=== PATIENT | female | born 1955 | race Caucasian/White ===

== ENCOUNTER 2025-01-22 13:21 | Inpatient (IN) | payer MEDICARE, SELFPAY ==
[2025-01-22] VITALS (16 sets, daily range): BP systolic 104–146; BP diastolic 55–96; PULSE 79–119; RESP 16–26; TEMP 36.6; O2SAT 97–100; BMI 29.0
--- NOTE | ~2025-01-22 | XR_ITS ---
XR chest 2V 01/22/2025 13:38 Indication: Syncope Procedure: 2 view chest Comparison: No prior studies for comparison. Findings: Elevated left diaphragm. Cardiomegaly. There is atherosclerosis of the aorta. Retrocardiac infiltrates are present which may represent atelectasis or pneumonia. No pneumothorax. No acute osseo us abnormality. Impression: 1: Retrocardiac infiltrates, atelectasis versus pneumonia. Reviewed, dictated and finalized at location A. Impression: 1: Retrocardiac infiltrates, atelectasis versus pneumonia.
--- NOTE | ~2025-01-22 | CT_ITS ---
CT brain wo con Ordering provider: FARHANA Chino History: 69 years Female with . Syncope . Comparison: None. Technique: CT of the head without contrast. Radiation reduction technique utilized.The dose-length pr oduct was 605.33 mGy-cm. FINDINGS: BRAIN PARENCHYMA AND CSF SPACES: Mild leukoaraiosis and diffuse cortical atrophy. Mild atheromatous d isease. No midline shift, mass effect or hemorrhage. The brain parenchyma and CSF spaces are otherwi se normal. VISUALIZED PARANASAL SINUSES: Well aerated. MASTOIDS: Well aerated. BONES: The bones appear intact. SOFT TISSUES: Visualized nasopharynx is normal. Superficial soft tissues are normal. IMPRESSION: No acute intracranial findings. Reviewed, dictated and finalized at location A.
--- NOTE | ~2025-01-22 | US_ITS ---
Procedure: Duplex Doppler examination of the bilateral carotids. Indication: Syncope Technique: Real time, color-flow and pulse wave Doppler examination of the bilateral carotids was performed. Findings: Toure scale ultrasonography of the right neck demonstrated no significant plaque.. There was demonstra tion of normal color-flow and Doppler waveforms within the right common, internal and external caroti d arteries. The peak systolic velocities in the right common, internal and external carotid arteries were demonstrated to be 56 cm/sec, 70 cm/sec and 100 cm/sec respectively. The right ICA/CCA ratio was 1.3.The proximal right internal carotid artery demonstrates 0% stenosis relative to the normal dista l artery lumen diameter. Toure scale sonography of the left neck demonstrated small scattered plaques in the left common caroti d artery. There was demonstration of normal color-flow and wave forms within the left common, interna l and external carotid arteries. The peak systolic velocities in the left common, internal and business taxes specialist al carotid arteries were demonstrated to be 78cm/sec, 94 cm/sec and 74 cm/sec respectively. The left ICA/CCA ratio was 1.2. The proximal left internal carotid artery demonstrates 0% stenosis relative to the normal distal artery lumen diameter. There was antegrade flow demonstrated in the bilateral vertebral arteries. Impression: No hemodynamically significant stenosis of the bilateral internal carotid arteries. Antegrade flow in the bilateral vertebral arteries. Note: The methodology used is an indirect measurement validated against a direct method (such as the NASCET criteria) that compares diameters at the stenosis to the distal ICA. Reviewed, dictated and finalized at location . Impression: No hemodynamically significant stenosis of the bilateral internal carotid arter ies. Antegrade flow in the bilateral vertebral arteries. Note: The methodology used is an indirect measurement validated against a direct meth od (such as the NASCET criteria) that compares diameters at the stenosis to the distal ICA.
--- NOTE | 2025-01-22 13:26 | ECG_ITS ---
Test Date: 2025-01-22 13:29:38 Measurements Intervals [place] Rate: 83 P: 62 CA: 159 QRS: -18 QRSD: 84 T: 6 QT: 393 QTc: 462 Interpretive Statements SINUS RHYTHM WITH OCCASIONAL VENTRICULAR PREMATURE COMPLEXES POSSIBLE LEFT ATRIAL ENLARGEMENT [-0.1mV P WAVE IN V1/V2] LOW QRS VOLTAGE IN PRECORDIAL LEADS [QRS DEFLECTION < 1.0 mV IN CHEST LEADS] ANTEROSEPTAL MYOCARDIAL INFARCTION , OF INDETERMINATE AGE [40+ ms Q WAVE IN V1-V4] No previous ECG available for comparison Electronically Signed On 01-23-2025 15:58:52 CDT by Nicole Uriarte
[2025-01-22 14:48] LABS: Basophils Absolute Auto 0.1 K/mm3 (0.0-0.1); Basophils Percent Auto 0.5 % (0.2-1.2); Eosinophils Absolute Auto 0.1 K/mm3 (0-0.3); Eosinophils Percent Auto 0.5 % (0-4.4); Hematocrit 40.5 % (37.0-47.0); Hemoglobin 12.7 g/dL (12.0-15.0); Immature Granulocyte Absolute 0.04 K/mm3 (0.00-0.031); Immature Granulocyte Percent A 0.3 % (0-0.5); Lymphocytes Absolute Auto 0.78 K/mm3 (0.9-3.2); Mean Corpuscular HGB Conc 31.4 g/dl (32-36); Mean Corpuscular Hemoglobin 29.9 pg (26-34); Mean Corpuscular Volume 95.3 fl (80-100); Mean Platelet Volume 9.2 fl (7.4-10.4); Monocytes Absolute Auto 0.8 K/mm3 (0.1-0.6); Monocytes Percent Auto 6.1 % (2.6-8.5); Neutrophils Absolute Auto 11.3 K/mm3 (1.3-6.7); Neutrophils Percent Auto 86.6 % (45.5-73.1); Platelet Count Result 322 k/mm3 (150-375); Red Blood Count 4.25 M/mm3 (4.2-5.4); Red Cell Distribution Width 12.6 % (11.5-14.5)
[2025-01-22 15:00] LABS: Alanine Aminotransferase 23 U/L (6-35); Albumin Level 4.1 g/dL (3.5-5.1); Alkaline Phosphatase 159 U/L (38-126); Anion Gap 12 mmol/L (4-12); Aspartate Amino Transferase 29 U/L (14-36); Bilirubin,Total 1.1 mg/dL (0.2-1.3); Blood Urea Nitrogen 12 mg/dL (7-17); Carbon Dioxide 19 mmol/L (22-30); Chloride 107 mmol/L (98-107); Estimated CRCL calculation 41 ml/min; Estimated Glomerular Filt Rate 48; Glucose 122 mg/dL (65-110); Potassium 3.8 mmol/L (3.4-5.0); Sodium 138 mmol/L (137-145)
--- NOTE | 2025-01-22 15:27 | ED_ITS ---
HPI - Syncope General Chief Complaint: Syncope Stated Complaint: syncope Time Seen by Provider: 01/22/25 14:24 Source: patient, family and EMS Mode of arrival: EMS Limitations: altered mental status History of Present Illness HPI narrative: 69 years old white female came from group home because of syncope. 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 No seizure-like activities, patient denies any fever, chills, nausea, vomiting, chest pain, shortness of breath or headache or focal neuro deficit. History of dementia patient is oriented to her name only. Related Data Allergies Allergy/AdvReac Type Severity Reaction Status Date / Time Penicillins Allergy Severe Anaphylaxis Verified 01/22/25 13:25 Review of Systems 2 Review of Systems: All systems reviewed & are unremarkable except as noted in HPI and below Exam 2 Narrative: General appearance: Well-developed, well-nourished Skin: Normal color Head: Normocephalic, nontraumatic Eyes: Clear conjunctiva ENT: Oropharynx normal, ears normal, nose normal Neck: Supple, nontender Chest and respiratory: Airway patent, no respiratory distress, no accessory muscle use Heart: Regular rate/rhythm Abdomen: Soft, nontender, no organomegaly, quiet bowel sounds Vascular: Normal peripheral pulses, normal capillary refill. Musculoskeletal: Normal range of motion, nontender back Neurologic: Alert and oriented to her name only Course Vital Signs Vital signs: Vital Signs Pulse Rate 96 01/22/25 13:18 Respiratory Rate 16 01/22/25 13:18 Blood Pressure 115/96 H 01/22/25 13:18 Pulse Oximetry 100 01/22/25 13:18 Oxygen Delivery Room Air 01/22/25 13:18 Pulse Rate 106 H 01/22/25 14:32 Respiratory Rate 18 01/22/25 14:32 Blood Pressure 111/75 01/22/25 14:32 Pulse Oximetry 97 01/22/25 14:32 Oxygen Delivery Room Air 01/22/25 13:18 MDM - Syncope MDM Narrative Medical decision making narrative: Patient came to the ED with syncope after eating then standing and walking Vital signs are stable Physical examination is unremarkable except for dementia Differential diagnosis includes orthostatic hypotension, postprandial hypotension, electrolyte imbalance, dehydration, cardiac arrhythmia Blood workup today includes CBC, CMP, troponin showed WBC 13.0, creatinine 1.1, otherwise insignificant abnormalities Chest x-ray showed atelectasis versus pneumonia, patient does not have fever, does not cough, does not have shortness of breath, elevated white count could be reactive leukocytosis. Orthostatic blood pressure check positive for orthostasis which high likely the underlying cause of patient syncope + postprandial hypotension. Admit to hospitalist Diagnosis syncope, orthostatic hypertension Differential Diagnosis Differential diagnosis: Likely other (As above) Medical Records Attestation: I reviewed the patient's medical records. Lab Data Attestation: I reviewed the patient's lab results. 01/22/25 14:42 01/22/25 14:42 Labs: Lab Results 01/22/25 Range/Units 14:42 WBC 13.0 H (4.5-10.0) K/mm3 RBC 4.25 (4.2-5.4) M/mm3 Hgb 12.7 (12.0-15.0) g/dL Hct 40.5 (37.0-47.0) % MCV 95.3 (80-100) fl MCH 29.9 (26-34) pg MCHC 31.4 L (32-36) g/dl RDW 12.6 (11.5-14.5) % Plt Count 322 (150-375) k/mm3 MPV 9.2 (7.4-10.4) fl Immature Gran % (Auto) 0.3 (0-0.5) % Neut % (Auto) 86.6 H (45.5-73.1) % Lymph % (Auto) 6.0 L (18.3-44.2) % Sherman % (Auto) 6.1 (2.6-8.5) % Eos % (Auto) 0.5 (0-4.4) % Baso % (Auto) 0.5 (0.2-1.2) % Lymph # (Auto) 0.78 L (0.9-3.2) K/mm3 Sherman # (Auto) 0.8 H (0.1-0.6) K/mm3 Eos # (Auto) 0.1 (0-0.3) K/mm3 Baso # (Auto) 0.1 (0.0-0.1) K/mm3 Abs Immat Gran (auto) 0.04 H (0.00-0.031) K/mm3 Absolute Neuts (auto) 11.3 H (1.3-6.7) K/mm3 Absolute Nucleated RBC 0.000 (0.0-0.012) K/mm3 Nucleated RBC % 0.0 (0.0-0.2) % Sodium 138 (137-145) mmol/L Potassium 3.8 (3.4-5.0) mmol/L Chloride 107 (98-107) mmol/L Carbon Dioxide 19 L (22-30) mmol/L Anion Gap 12 (4-12) mmol/L BUN 12 (7-17) mg/dL Creatinine 1.12 H (0.7-1.0) mg/dL Estim Creat Clear Calc 41 ml/min Estimated GFR 48 L (59 - ) Glucose 122 H (65-110) mg/dL Calcium 9.0 (8.4-10.2) mg/dL Total Bilirubin 1.1 (0.2-1.3) mg/dL AST 29 (14-36) U/L ALT 23 (6-35) U/L Alkaline Phosphatase 159 H (38-126) U/L Total Protein 8.0 (6.3-8.2) g/dL Albumin 4.1 (3.5-5.1) g/dL Imaging Data Radiologist's impression: Impressions Chest X-Ray 01/22/25 13:41 Impression: 1: Retrocardiac infiltrates, atelectasis versus pneumonia. ECG Data EKG #1: Attestation: I personally reviewed and interpreted this ECG as follows: ECG completion date: 01/22/25 Interpretation: Normal sinus rhythm at 83 beats per minute, occasional PVCs, left atrial enlargement, low QRS complex in precordial leads, anterolateral myocardial infarction of indeterminate age, no previous EKG available for comparison, normal EKG Critical Care Time Critical Care Time Critical Care Time: No Discharge Plan Discharge Clinical Impression: Syncope Patient Disposition: Home Condition: Improved Instructions: Syncope (ED) Additional Instructions: Return if symptoms are worsening , call your family physician for appointment, take Tylenol as as needed for aches and pain, continue home medications. Patient Language: Occitan Follow-up/Referrals: UNKNOWN,DOCTOR [Primary Care Provider] -
[2025-01-22] MEDS: SODIUM CHLORIDE 0.9% IV 1,000 ML 999 ML IV CONT (16:39)
--- NOTE | 2025-01-22 16:47 | P.HP_ITS ---
H&P: HPI History of Present Illness Date/Time: 01/22/25 16:47 Chief Complaint: Syncope Narrative: This 69 year old female pt with PMH of Alzheimers Dementia who is Alert and oriented to self only at baseline, HTN, Failure to thrive, Generalized weakness, and frequent UTI's who resides at [facility] is brought to the ER after a brief syncopal episode. I am told by the ER provider that EMS relayed to him that the pt was at baseline walking back to her room after eating and suddenly complained of being too weak to continue walking. The staff reportedly put a chair underneath her and they reported she had a 1-2 minute LOC. At no time did patient falls or have any acute head trauma or injury. There was no reported seizure activity. Patient is not on a blood thinner According to med list from half-way. In the emergency room workup performed shows leukocytosis with WBCs of 13.0, EKG normal with sinus rhythm with occasional PVCs at 83 beats per minute without any ectopy or ischemia and chest x-ray showed retrocardiac infiltrates concerning for atelectasis versus pneumonia. Urinalysis is ordered however to this point they have been unable to obtain a clean sample so nurse is going to straight catheterize. Patient received a 1 L bolus of IV fluids in the emergency room and is placed on maintenance rate of 125 mL/hour. Patient's Granddaughter and brother are both at the bedside, were not present when this incident occurred and cannot provide any meaningful information regarding the events of today but they do verify that patient does appear to be at her current baseline status and confirmed that she is do not resuscitate which is on patient's chart. Review of Systems Review of Systems: Any information received was from report from ER physician or obtained from EMS records and half-way records as patient has Alzheimer's dementia and is alert and oriented to self only. ROS unobtainable: Yes unobtainable due to mental status PMFSH Past Medical History Medical History (Updated 01/22/25 @ 17:00 by FARHANA Chino) Leukocytosis Frequent UTI Generalized weakness Failure to thrive Hypertension Alzheimer's dementia Comments History is difficult to obtain given pt's degree of dementia. Medical history is obtained from her [facility] record. Meds Home Medications and Allergies Allergies Allergy/AdvReac Type Severity Reaction Status Date / Time Penicillins Allergy Severe Anaphylaxis Verified 01/22/25 17:00 Vital Signs Vital Signs - 24 hr 01/22/25 13:18 01/22/25 14:28 01/22/25 14:29 Pulse Rate 96 84 99 Respiratory Rate 16 Blood Pressure 115/96 H 116/69 111/75 Pulse Oximetry 100 Oxygen Delivery Room Air 01/22/25 14:31 01/22/25 14:32 01/22/25 15:31 Pulse Rate 108 H 106 H 80 Respiratory Rate 18 22 H Blood Pressure 104/55 L 111/75 Pulse Oximetry 97 99 Oxygen Delivery 01/22/25 15:46 01/22/25 16:03 01/22/25 16:15 Pulse Rate 91 82 79 Respiratory Rate 26 H 24 H 21 H Blood Pressure Pulse Oximetry 100 Oxygen Delivery 01/22/25 16:30 01/22/25 16:35 Pulse Rate 85 85 Respiratory Rate 22 H Blood Pressure Pulse Oximetry 98 Oxygen Delivery Exam Const: General: comfortable and no acute distress Other: pleasantly confused, elderly female patient lying supine on stretcher at this time in no acute distress. HENMT: Mouth: Yes dry mucous membranes Eyes: General: appearance normal, both eyes and all related structures Sclera: sclerae normal Pupils: Equal, round and reactive pupils present EOM: EOMs intact bilaterally Neck: Neck: supple and no JVD Resp: Effort & Inspection: normal respiratory effort Auscultation: clear to auscultation bilaterally Cardio: Rate: regular rate Rhythm: regular rhythm Heart sounds: no gallops, no murmurs and no rubs Other: Occasional PVC audible with auscultation of the precordium. No displacement of PMI. GI: Inspection: non-distended GI Palp: Yes Soft to palpation and No Tenderness to palpation present (GI) Auscultation: normal bowel sounds Skin: General skin exam: normal color, no rashes or lesions noted and no erythema Lesions: no lesions noted Rashes: no rashes noted Wounds: no wounds Neuro: Other: Alert and oriented to self only. No acute focal deficits. Extrem: General: normal to inspection, no edema and no pedal edema Other: grossly intact with full active range of motion of all extremities. Psych: Affect: normal affect Other: Confused H&P: Results Labs Labs: Short CBC 01/22/25 Range/Units 14:42 WBC 13.0 H (4.5-10.0) K/mm3 Hgb 12.7 (12.0-15.0) g/dL Hct 40.5 (37.0-47.0) % Plt Count 322 (150-375) k/mm3 BMP 01/22/25 14:42 Sodium 138 Potassium 3.8 Chloride 107 Carbon Dioxide 19 L BUN 12 Creatinine 1.12 H Glucose 122 H Calcium 9.0 Liver Function 01/22/25 Range/Units 14:42 Total Bilirubin 1.1 (0.2-1.3) mg/dL AST 29 (14-36) U/L ALT 23 (6-35) U/L Alkaline Phosphatase 159 H (38-126) U/L Albumin 4.1 (3.5-5.1) g/dL Assessment and Plan Assessment and plan (1) Syncope: Code(s): R55 - Syncope and collapse Status: Acute Assessment and Plan: * Exact etiology unknown. Additional testing currently in process * Ordering CT Head STAT, despite no acute injury, to be prudent will obtain imaging. * Ordering ECHO * Obtain Carotid duplex * Q Shift Orthostatic vital signs * Trend labs and imaging * Neuro checks Q4 hrs (2) Leukocytosis: Code(s): D72.829 - Elevated white blood cell count, unspecified Status: Acute Assessment and Plan: * Etiology unknown at this time. Still obtaining workup. * CXR with overall concerns for Atelectasis vs. PNA with retrocardiac infiltrates. * Pt with hx of frequent UTI's. * Will start Levaquin 750 mg IVPB Q24 hrs to cover for both PNA and UTI potential. Rocephin not used as pt has anaphylaxis to PCN. * ER nurse to straight cath for urine sample as we have been unable to obtain a clean sample thus far. * Blood cultures x2 ordered. * Trend and monitor labs and VS. (3) Alzheimer's dementia: Code(s): G30.9 - Alzheimer's disease, unspecified; F02.80 - Dementia in other diseases classified elsewhere, unspecified severity, without behavioral disturbance, psychotic disturbance, mood disturbance, and anxiety Status: Chronic Assessment and Plan: * Chronic for pt. * Safety precautions initiated with fall precautions. * Restart home meds when they are confirmed. (4) Hypertension: Code(s): I10 - Essential (primary) hypertension Status: Chronic Assessment and Plan: * Currently stable. * Restart home meds after confirmed. (5) Failure to thrive: Status: Chronic Assessment and Plan: * Pt receiving IVF of NS at 100 ml/hr. * Accurate calorie count * Accurate intake and output. (6) Generalized weakness: Code(s): R53.1 - Weakness Status: Chronic Assessment and Plan: * PT and OT evaluation and treat for discharge planning. * No focal deficits. (7) Frequent UTI: Code(s): N39.0 - Urinary tract infection, site not specified Status: Chronic Assessment and Plan: * No currently known treatment of UTI. * Due to history of and the current Leukocytosis, Levaquin 750 mg Q24 hrs is initiated. 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 Quality VTE Prophylaxis VTE prophylaxis: mechanical ordered Hospitalist MIPS Advance Care Plan I have confirmed that the patient's Advanced Care Plan is present, code status is documented, or surrogate decision maker is listed in patient medical record.: Yes Medication Reconciliation I have utilized all available resources to obtain, update and review the patients current medications (includes all prescriptions, OTC, herbals, cannabis, and nutritional supplements).: Yes
[2025-01-22 17:04] LABS: Add Urine Microscopic? NO; Appearance Urine Clear (Clear); Bilirubin Urine Negative (Negative); Blood Urine Negative (Negative); Color Urine Yellow (Yellow); Glucose Urine UA Negative (Negative); Ketones Urine 1+ mg/dL (Negative); Leukocyte Esterase Ur Negative LEU/UL (Negative); Nitrate Urine Negative (Negative); Protein Urine Negative (Negative); Specific Grav Ur 1.013 (1.001-1.035); pH Urine 7.5 (5.0-9.0)
--- NOTE | 2025-01-22 17:29 | ADMGEN ---
This patient, Krissy Kapoor, was admitted to Medical Room 254-01. Patient/family oriented to hospital policies and general routines including ID bracelet, bed and alarms, visiting hours, pain management, procedures, bathroom and other care routines, personal items, smoking policy, room service/diet, and visiting hours. Information on how to activate the Rapid Response Team has been discussed. Patient/Family are encouraged to report perceived risks to care and to ask questions if they do not understand what they are told or what they should do.
[2025-01-22] MEDS: levoFLOXacin 750 MG/D5W 150 ML 750 MG/150 ML BAG 100 MG IVPB (17:51)
[2025-01-22] MEDS: SODIUM CHLORIDE 0.9% IV 1,000 ML 125 ML IV CONT (17:52)
[2025-01-22] MEDS: QUEtiapine FUMARATE 25 MG TABLET 50 MG PO (21:30)
[2025-01-22] MEDS: traZODone HCL 50 MG TABLET PO (21:30)
[2025-01-23] VITALS (12 sets, daily range): BP systolic 118–164; BP diastolic 65–99; PULSE 82–103; RESP 16–18; TEMP 36.1–36.6; O2SAT 97–100
[2025-01-23 06:46] LABS: Basophils Absolute Auto 0.1 K/mm3 (0.0-0.1); Basophils Percent Auto 0.7 % (0.2-1.2); Eosinophils Absolute Auto 0.1 K/mm3 (0-0.3); Eosinophils Percent Auto 1.2 % (0-4.4); Hematocrit 39.4 % (37.0-47.0); Hemoglobin 12.5 g/dL (12.0-15.0); Immature Granulocyte Absolute 0.02 K/mm3 (0.00-0.031); Immature Granulocyte Percent A 0.2 % (0-0.5); Lymphocytes Absolute Auto 1.22 K/mm3 (0.9-3.2); Lymphocytes Percent Auto 14.7 % (18.3-44.2); Mean Corpuscular HGB Conc 31.7 g/dl (32-36); Mean Corpuscular Hemoglobin 29.8 pg (26-34); Mean Platelet Volume 9.1 fl (7.4-10.4); Monocytes Absolute Auto 0.7 K/mm3 (0.1-0.6); Monocytes Percent Auto 8.4 % (2.6-8.5); Neutrophils Absolute Auto 6.2 K/mm3 (1.3-6.7); Neutrophils Percent Auto 74.8 % (45.5-73.1); Platelet Count Result 323 k/mm3 (150-375); Red Blood Count 4.19 M/mm3 (4.2-5.4); Red Cell Distribution Width 12.7 % (11.5-14.5); White Blood Count 8.3 K/mm3 (4.5-10.0)
[2025-01-23 06:54] LABS: Alanine Aminotransferase 18 U/L (6-35); Albumin Level 3.8 g/dL (3.5-5.1); Alkaline Phosphatase 145 U/L (38-126); Anion Gap 10 mmol/L (4-12); Aspartate Amino Transferase 25 U/L (14-36); Bilirubin,Total 0.8 mg/dL (0.2-1.3); Blood Urea Nitrogen 11 mg/dL (7-17); Calcium 8.9 mg/dL (8.4-10.2); Carbon Dioxide 18 mmol/L (22-30); Chloride 110 mmol/L (98-107); Estimated CRCL calculation 48 ml/min; Estimated Glomerular Filt Rate 58; Glucose 91 mg/dL (65-110); Magnesium 2.2 mg/dL (1.6-2.3); Sodium 138 mmol/L (137-145)
[2025-01-23] MEDS: traZODone HCL 50 MG TABLET PO ×3 (08:47→17:08)
[2025-01-23] MEDS: lisinopriL 10 MG TABLET PO (08:47)
[2025-01-23] MEDS: THIAMINE HCL 100 MG TABLET PO (08:47)
[2025-01-23] MEDS: QUEtiapine FUMARATE 25 MG TABLET 50 MG PO ×2 (08:47→20:45)
[2025-01-23] MEDS: ESCITALOPRAM OXALATE 5 MG TABLET PO (08:48)
[2025-01-23] MEDS: ACETAMINOPHEN 325 MG TABLET 650 MG PO (08:48)
--- NOTE | 2025-01-23 09:46 | P.PNIM_ITS ---
Progress Note: A&P Assessment and Plan (1) Syncope: Code(s): R55 - Syncope and collapse Status: Acute Assessment and Plan: * Exact etiology unknown. * CT head no acute changes * Ordering ECHO, Carotid duplex * Q Shift Orthostatic vital signs * Trend labs and imaging * Neuro checks Q4 hrs (2) Alzheimer's dementia: Code(s): G30.9 - Alzheimer's disease, unspecified; F02.80 - Dementia in other diseases classified elsewhere, unspecified severity, without behavioral disturbance, psychotic disturbance, mood disturbance, and anxiety Status: Chronic Assessment and Plan: * Chronic for pt. * Safety precautions initiated with fall precautions. * Restart home meds when they are confirmed. (3) Hypertension: Code(s): I10 - Essential (primary) hypertension Status: Chronic Assessment and Plan: * Currently stable. * Restart home meds after confirmed. (4) Failure to thrive: Status: Chronic Assessment and Plan: * Pt receiving IVF of NS at 100 ml/hr. * Accurate calorie count * Accurate intake and output. (5) Generalized weakness: Code(s): R53.1 - Weakness Status: Chronic Assessment and Plan: * PT and OT evaluation and treat for discharge planning. * No focal deficits. (6) Frequent UTI: Code(s): N39.0 - Urinary tract infection, site not specified Status: Chronic Assessment and Plan: * No currently known treatment of UTI. * Due to history of and the current Leukocytosis, Levaquin 750 mg Q24 hrs is initiated. 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 Plan Pneumonia CXR retrocardiac infiltrates, WBC 13 Blood cultures ordered Continue Levaquin DVT prophylaxis on Sq Lovenox Subjective Date/time seen: 01/23/25 09:46 Interval history: Comfortable at bedside Review of Systems Review of Systems: Any information received was from report from ER physician or obtained from EMS records and long term records as patient has Alzheimer's dementia and is alert and oriented to self only. ROS unobtainable: Yes unobtainable due to mental status Exam Const: General: comfortable and no acute distress Other: pleasantly confused, elderly female patient lying supine on stretcher at this time in no acute distress. HENMT: Mouth: Yes dry mucous membranes Eyes: General: appearance normal, both eyes and all related structures Sclera: sclerae normal Pupils: Equal, round and reactive pupils present EOM: EOMs intact bilaterally Neck: Neck: supple and no JVD Resp: Effort & Inspection: normal respiratory effort Auscultation: clear to auscultation bilaterally Cardio: Rate: regular rate Rhythm: regular rhythm Heart sounds: no gallops, no murmurs and no rubs Other: Occasional PVC audible with auscultation of the precordium. No displacement of PMI. GI: Inspection: non-distended Auscultation: normal bowel sounds Skin: General skin exam: normal color, no rashes or lesions noted, no erythema, No lesion and No rashes Lesions: no lesions noted Rashes: no rashes noted Wounds: no wounds Neuro: Cranial nerves: Yes Equal, round and reactive pupils present Other: Alert and oriented to self only. No acute focal deficits. Extrem: General: normal to inspection, no edema and no pedal edema Other: grossly intact with full active range of motion of all extremities. Psych: Affect: normal affect Other: Confused Objective Data Vital Signs Vital Signs: Vital Signs - 24 hr 01/22/25 13:18 01/22/25 14:28 01/22/25 14:29 Temperature Pulse Rate 96 84 99 Respiratory Rate 16 Blood Pressure 115/96 H 116/69 111/75 Pulse Oximetry 100 Oxygen Delivery Room Air 01/22/25 14:31 01/22/25 14:32 01/22/25 15:31 Temperature Pulse Rate 108 H 106 H 80 Respiratory Rate 18 22 H Blood Pressure 104/55 L 111/75 Pulse Oximetry 97 99 Oxygen Delivery 01/22/25 15:46 01/22/25 16:03 01/22/25 16:15 Temperature Pulse Rate 91 82 79 Respiratory Rate 26 H 24 H 21 H Blood Pressure Pulse Oximetry 100 Oxygen Delivery 01/22/25 16:30 01/22/25 16:30 01/22/25 16:35 Temperature Pulse Rate 85 85 Respiratory Rate 22 H Blood Pressure Pulse Oximetry 98 98 Oxygen Delivery Room Air 01/22/25 18:15 01/22/25 20:00 01/22/25 21:09 Temperature 97.9 F Pulse Rate 79 93 Respiratory Rate 16 Blood Pressure 146/75 H Pulse Oximetry 98 Oxygen Delivery Room Air 01/22/25 22:50 01/22/25 22:52 01/22/25 22:59 Temperature Pulse Rate 82 103 H 119 H Respiratory Rate Blood Pressure 131/66 134/78 123/73 Pulse Oximetry Oxygen Delivery 01/23/25 00:49 01/23/25 04:00 01/23/25 06:00 Temperature 97 F L Pulse Rate 84 84 99 Respiratory Rate 18 Blood Pressure 164/90 H Pulse Oximetry 98 Oxygen Delivery Intake/Output Intake/Output: Intake & Output 01/20/25 01/21/25 01/22/25 01/23/25 23:59 23:59 23:59 23:59 Intake Total 270 150 Output Total 2 250 Balance 268 -100 Meds/Results Medications: Active Medications Generic Name Dose Route Start Last Admin Trade Name Freq PRN Reason Stop Dose Admin Acetaminophen 650 mg 01/22/25 15:33 01/23/25 08:48 Acetaminophen 325 Mg Tablet PO 650 mg Q4H PRN Administration Mild Pain (1-3) or Fever Acetaminophen 650 mg 01/22/25 15:33 Acetaminophen 650 Mg Suppository RECTAL Q6H PRN Mild Pain (1-3) or Fever Escitalopram Oxalate 5 mg 01/23/25 09:00 01/23/25 08:48 Escitalopram Oxalate 5 Mg Tablet PO 5 mg DAILY W[place] Administration Sodium Chloride 1,000 mls @ 125 mls/hr 01/22/25 15:35 01/23/25 06:27 Normal Saline Iv IV CONT Not Given .Q8H W[place] Levofloxacin/Dextrose 750 mg in 150 mls @ 100 mls/hr 01/22/25 18:00 01/22/25 19:21 Levaquin 750 Mg/D5w 150 Ml IVPB Infused Q24H [place] Infusion Lisinopril 10 mg 01/23/25 09:00 01/23/25 08:47 Lisinopril 10 Mg Tablet PO 10 mg DAILY [place] Administration Perflutren Lipid Microsphere 0 ml 01/22/25 17:12 Perflutren Lipid Microspheres 1.5 Ml Vial Diluted To 10 Ml Total Volume IV PUSH 01/25/25 17:12 ONCE PRN adequate visualization Protocol Quetiapine Fumarate 50 mg 01/22/25 21:15 01/23/25 08:47 Quetiapine Fumarate 25 Mg Tablet PO 50 mg Q12HR [place] Administration Thiamine HCl 100 mg 01/23/25 09:00 01/23/25 08:47 Thiamine Hcl 100 Mg Tablet PO 100 mg QAM [place] Administration Trazodone HCl 50 mg 01/22/25 21:15 01/23/25 08:47 Trazodone Hcl 50 Mg Tablet PO 50 mg TID W[place]ON Administration Radiology Results: ITS Impressions Chest X-Ray 01/22/25 13:41 Impression: 1: Retrocardiac infiltrates, atelectasis versus pneumonia. Head CT 01/23/25 07:03 IMPRESSION: No acute intracranial findings. Labs Labs: Laboratory Results - last 24 hr 01/22/25 01/22/25 01/23/25 14:42 16:55 06:40 WBC 13.0 H 8.3 RBC 4.25 4.19 L Hgb 12.7 12.5 Hct 40.5 39.4 MCV 95.3 94.0 MCH 29.9 29.8 MCHC 31.4 L 31.7 L RDW 12.6 12.7 Plt Count 322 323 MPV 9.2 9.1 Immature Gran % (Auto) 0.3 0.2 Neut % (Auto) 86.6 H 74.8 H Lymph % (Auto) 6.0 L 14.7 L [place] % (Auto) 6.1 8.4 Eos % (Auto) 0.5 1.2 Baso % (Auto) 0.5 0.7 Lymph # (Auto) 0.78 L 1.22 [place] # (Auto) 0.8 H 0.7 H Eos # (Auto) 0.1 0.1 Baso # (Auto) 0.1 0.1 Abs Immat Gran (auto) 0.04 H 0.02 Absolute Neuts (auto) 11.3 H 6.2 Absolute Nucleated RBC 0.000 0.000 Nucleated RBC % 0.0 0.0 Sodium 138 138 Potassium 3.8 4.0 Chloride 107 110 H Carbon Dioxide 19 L 18 L Anion Gap 12 10 BUN 12 11 Creatinine 1.12 H 0.95 Estim Creat Clear Calc 41 48 Estimated GFR 48 L 58 L Glucose 122 H 91 Calcium 9.0 8.9 Magnesium 2.2 Total Bilirubin 1.1 0.8 AST 29 25 ALT 23 18 Alkaline Phosphatase 159 H 145 H Total Protein 8.0 7.0 Albumin 4.1 3.8 Urine Color Yellow Urine Appearance Clear Urine pH 7.5 Ur Specific [place] 1.013 Urine Protein Negative Urine Glucose (UA) Negative Urine Ketones 1+ H Ur Blood (Man) Negative Urine Nitrate Negative Urine Bilirubin Negative Urine Urobilinogen 1.0 Leukocyte Esterase Rfl Negative Quality VTE Prophylaxis VTE prophylaxis: mechanical ordered
[2025-01-23] MEDS: SODIUM CHLORIDE 0.9% IV 1,000 ML 125 ML IV CONT (13:16)
[2025-01-23] MEDS: ENOXAPARIN 40 MG/0.4 ML SYRINGE SUB-Q (13:17)
[2025-01-23] MEDS: levoFLOXacin 750 MG/D5W 150 ML 750 MG/150 ML BAG 100 MG IVPB (17:05)
[2025-01-24] VITALS (13 sets, daily range): BP systolic 96–153; BP diastolic 56–96; PULSE 59–109; RESP 18; TEMP 36.4–37.1; O2SAT 93–97; BMI 29.0
--- NOTE | 2025-01-24 | ECHO_ITS ---
Patient Info Name: Krissy Kapoor Age: 69 years : 1955 Gender: Female Ht: 64 in Wt: 169 lbs BSA: 1.88 m2 HR: 85 bpm BP: 144 / 91 mmHg Heart Rhythm: Sinus Rhythm Technical Quality: Good Exam Date: 01/24/2025 3:00 PM Exam Location: Echo Lab Patient Status: Inpatient Admit Date: 01/23/2025 Staff Ordering Physician: Chelle Cano Cook Candy: Denise Kapoor RDCS Attending Provider: Arun Thompson MD Referring Physician: Jerome DIAZ; Exam Type: CA echo doppler w bubble study Study Info Indications - Syncope Complete two-dimensional, color flow and Doppler transthoracic echocardiogram is performed with agitated saline. Contrast/Agitated Saline Contrast/Ag. Saline: Agitated Saline Amount: 12.00 ml Existing IV Access: Yes IV Access Condition: patent with no signs of infiltration Summary 1. Mild left ventricular hypertrophy with well-preserved systolic function and grade 1 diastolic noncompliance. 2. Modest left atrial enlargement. 3. Small amount of mitral, tricuspid and pulmonic regurgitation. 4. Sinus rhythm. Left Ventricle Left ventricular chamber dimension is normal. Left ventricular systolic function is normal, estimated at 65-70%. The left ventricular diastolic function is grade I diastolic dysfunction. Right Ventricle Right ventricular chamber dimension is normal. Left Atria Left atrial chamber dimension is mildly enlarged. Right Atria Right atrial chamber dimension is normal. Atrial Septum Intact interatrial septum visualized by agitated saline imaging. Aortic Valve The aortic valve is normal. Pulmonic Valve The pulmonic valve is not well visualized. There is mild pulmonic regurgitation. Mitral Valve The mitral valve has normal leaflets. There is mild mitral valve regurgitation. Tricuspid Valve The tricuspid valve leaflets are normal. There is mild tricuspid valve regurgitation. Mild pulmonary hypertension, estimated pulmonary arterial systolic pressure is 41 mmHg. Pericardium/Pleural The pericardium appears normal. Aorta The aortic root size at the sinus of Valsalva is normal. Left Ventricular Outflow Tract Name Value Normal LVOT 2D LVOT Diameter 1.8 cm LVOT Doppler LVOT Peak Gradient 3 mmHg LVOT Mean Gradient 2 mmHg LVOT VTI 15 cm LVOT VTI/AV VTI Ratio 0.6 LVOT Stroke Volume 39 ml LVOT CO 10.2 l/min LVOT CI 5.4 l/min/m2 Pulmonic Valve Name Value Normal PV Doppler PV Peak Gradient 4 mmHg Mitral Valve Name Value Normal MV Doppler MV Decel [place] 243 cm/s2 MV PHT 66 ms MV Area (PHT) 3.3 cm2 4.0-5.0 MV Diastolic Function MV E Peak Velocity 55 cm/s MV A Peak Velocity 97 cm/s MV E/A 0.6 MV Decel Time 227 ms MV Annular TDI MV E/e' (Septal) 13.3 <=8.0 MV E/e' (Lateral) 11.7 <=8.0 MV E/e' (Average) 12.5 Tricuspid Valve Name Value Normal TV Regurgitation Doppler TR Peak Velocity 280 cm/s TR Peak Gradient 31 mmHg Estimated PAP/RSVP RA Pressure 10 mmHg <=5 PA Systolic Pressure 41 mmHg <36 RV Systolic Pressure 41 mmHg <36 Aorta Name Value Normal Ascending Aorta Ao Root Diameter (MM) 3.1 cm Ao Root Diam Index (MM) 1.6 cm/m2 Aortic Valve Name Value Normal AV Doppler AV Peak Velocity 136 cm/s AV Peak Gradient 7 mmHg AV Mean Gradient 5 mmHg AV VTI 23 cm AV Area (Cont Eq VTI) 1.7 cm2 >=3.0 AV Area (Cont Eq Arturo) 1.6 cm2 AV Regurgitation 2D LVOT Area 2.7 cm2 Ventricles Name Value Normal LV Dimensions 2D/MM IVS Diastolic Thickness (2D) 1.2 cm 0.6-1.0 LVID Diastole (2D) 4.0 cm 3.8-5.2 LVIW Diastolic Thickness (2D) 1.1 cm 0.6-0.9 LVID Systole (2D) 3.0 cm 2.2-3.5 LVOT Diameter 1.8 cm LV Mass (2D Cubed) 158.99 g 67.00-162.00 LV Mass Index (2D Cubed) 84 g/m2 43-95 Relative Wall Thickness (2D) 0.54 LV Fractional Shortening/Ejection Fraction 2D/MM LV Fractional Shortening (2D) 26 % 27-45 LV EF (2D Teicholz) 51 % 54-74 LV Diastolic Volume (4C MOD) 93 ml LV EF (4C MOD) 60 % LV Diastolic Volume (2C MOD) 91 ml LV EF (2C MOD) 64 % LV Diastolic Volume (BP MOD) 93 ml 46-106 LV Diastolic Volume Index (BP MOD) 49 ml/m2 29-61 LV Systolic Volume (BP MOD) 37 ml 14-42 LV Systolic Volume Index (BP MOD) 19 ml/m2 8-24 LV EF (BP MOD) 61 % 54-74 LV Diastolic Length (4C) 7.1 cm LV Systolic Length (4C) 6.5 cm LV Stroke Volume (4C MOD) 55 ml RV Dimensions 2D/MM RVID Diastole (2D) 3.4 cm 2.5-3.5 Atria Name Value Normal LA Dimensions LA Dimension (MM) 3.8 cm 2.7-3.8 LA Volume (4C A-L) 52 ml LA Volume (BP A-L) 48 ml RA Dimensions RA Area (4C) 16.1 cm2 <=18.0 Report Signatures
[2025-01-24 05:03] LABS: Basophils Absolute Auto 0.1 K/mm3 (0.0-0.1); Basophils Percent Auto 0.7 % (0.2-1.2); Eosinophils Absolute Auto 0.2 K/mm3 (0-0.3); Eosinophils Percent Auto 2.3 % (0-4.4); Hematocrit 35.6 % (37.0-47.0); Hemoglobin 11.4 g/dL (12.0-15.0); Immature Granulocyte Absolute 0.02 K/mm3 (0.00-0.031); Immature Granulocyte Percent A 0.3 % (0-0.5); Lymphocytes Percent Auto 14.7 % (18.3-44.2); Mean Corpuscular Hemoglobin 29.5 pg (26-34); Mean Corpuscular Volume 92.2 fl (80-100); Mean Platelet Volume 9.4 fl (7.4-10.4); Monocytes Absolute Auto 0.6 K/mm3 (0.1-0.6); Monocytes Percent Auto 9.4 % (2.6-8.5); Neutrophils Percent Auto 72.6 % (45.5-73.1); Platelet Count Result 332 k/mm3 (150-375); Red Blood Count 3.86 M/mm3 (4.2-5.4); Red Cell Distribution Width 12.7 % (11.5-14.5); White Blood Count 6.8 K/mm3 (4.5-10.0)
[2025-01-24 05:34] LABS: Alanine Aminotransferase 20 U/L (6-35); Albumin Level 3.5 g/dL (3.5-5.1); Alkaline Phosphatase 141 U/L (38-126); Anion Gap 8 mmol/L (4-12); Aspartate Amino Transferase 25 U/L (14-36); Bilirubin,Total 0.5 mg/dL (0.2-1.3); Blood Urea Nitrogen 6 mg/dL (7-17); Calcium 8.9 mg/dL (8.4-10.2); Carbon Dioxide 20 mmol/L (22-30); Chloride 109 mmol/L (98-107); Estimated CRCL calculation 51 ml/min; Estimated Glomerular Filt Rate > 60; Glucose 100 mg/dL (65-110); Magnesium 2.1 mg/dL (1.6-2.3); Sodium 137 mmol/L (137-145)
[2025-01-24] MEDS: traZODone HCL 50 MG TABLET PO ×3 (08:16→17:28)
[2025-01-24] MEDS: lisinopriL 10 MG TABLET PO (08:16)
[2025-01-24] MEDS: ENOXAPARIN 40 MG/0.4 ML SYRINGE SUB-Q (08:17)
[2025-01-24] MEDS: QUEtiapine FUMARATE 25 MG TABLET 50 MG PO ×2 (08:17→20:24)
[2025-01-24] MEDS: THIAMINE HCL 100 MG TABLET PO (08:17)
[2025-01-24] MEDS: ESCITALOPRAM OXALATE 5 MG TABLET PO (08:17)
--- NOTE | 2025-01-24 11:54 | P.PNIM_ITS ---
Progress Note: A&P Assessment and Plan (1) Syncope: Code(s): R55 - Syncope and collapse Status: Acute Assessment and Plan: * Exact etiology unknown. * CT head no acute changes, Carotid duplex negative * ECHO pending * Orthostatic vital signs wnl * Trend labs and imaging * monitor (2) Alzheimer's dementia: Code(s): G30.9 - Alzheimer's disease, unspecified; F02.80 - Dementia in other diseases classified elsewhere, unspecified severity, without behavioral disturbance, psychotic disturbance, mood disturbance, and anxiety Status: Chronic Assessment and Plan: * Chronic for pt. * Safety precautions initiated with fall precautions. * Restart home meds when they are confirmed. (3) Hypertension: Code(s): I10 - Essential (primary) hypertension Status: Chronic Assessment and Plan: * Currently stable. * Restart home meds after confirmed. (4) Failure to thrive: Status: Chronic Assessment and Plan: * Pt receiving IVF of NS at 100 ml/hr. * Accurate calorie count * Accurate intake and output. (5) Generalized weakness: Code(s): R53.1 - Weakness Status: Chronic Assessment and Plan: * PT and OT evaluation and treat for discharge planning. * No focal deficits. (6) Frequent UTI: Code(s): N39.0 - Urinary tract infection, site not specified Status: Chronic Assessment and Plan: On Levaquin Plan Pneumonia CXR retrocardiac infiltrates, leukocytosis resolved Blood cultures ordered Continue Levaquin DVT prophylaxis on Sq Lovenox Awaiting ECHO for discharge planning Subjective Date/time seen: 01/24/25 11:54 Interval history: Comfortable at bedside Orthostatic vital signs wnl awaiting ECHO Review of Systems Review of Systems: Any information received was from report from ER physician or obtained from EMS records and shelter records as patient has Alzheimer's dementia and is alert and oriented to self only. ROS unobtainable: Yes unobtainable due to mental status Exam Const: General: comfortable and no acute distress Other: pleasantly confused, elderly female patient lying supine on stretcher at this time in no acute distress. HENMT: Mouth: Yes dry mucous membranes Eyes: General: appearance normal, both eyes and all related structures Sclera: sclerae normal Pupils: Equal, round and reactive pupils present EOM: EOMs intact bilaterally Neck: Neck: supple and no JVD Resp: Effort & Inspection: normal respiratory effort Auscultation: clear to auscultation bilaterally Cardio: Rate: regular rate Rhythm: regular rhythm Heart sounds: no gallops, no murmurs and no rubs Other: Occasional PVC audible with auscultation of the precordium. No displacement of PMI. GI: Inspection: non-distended Auscultation: normal bowel sounds Skin: General skin exam: normal color, no rashes or lesions noted, no erythema, No lesion and No rashes Lesions: no lesions noted Rashes: no rashes noted Wounds: no wounds Neuro: Cranial nerves: Yes Equal, round and reactive pupils present Other: Alert and oriented to self only. No acute focal deficits. Extrem: General: normal to inspection, no edema and no pedal edema Other: grossly intact with full active range of motion of all extremities. Psych: Affect: normal affect Other: Confused Objective Data Vital Signs Vital Signs: Vital Signs - 24 hr 01/23/25 12:00 01/23/25 14:45 01/23/25 14:45 Temperature 97.6 F 97.6 F Pulse Rate 93 85 85 Respiratory Rate 18 16 Blood Pressure 126/65 126/65 Pulse Oximetry 98 98 Oxygen Delivery 01/23/25 14:50 01/23/25 14:55 01/23/25 20:00 Temperature 97.1 F L 97.2 F L 97.4 F L Pulse Rate 89 103 H Respiratory Rate 16 18 18 Blood Pressure 139/70 118/67 147/88 H Pulse Oximetry 98 97 99 Oxygen Delivery 01/23/25 20:00 01/23/25 20:00 01/23/25 20:14 Temperature 97.4 F L Pulse Rate 82 96 Respiratory Rate 18 Blood Pressure 127/99 H Pulse Oximetry 100 Oxygen Delivery Room Air 01/23/25 20:16 01/23/25 22:00 01/24/25 00:00 Temperature 97.8 F 97.9 F Pulse Rate 102 H 91 97 Respiratory Rate 18 18 Blood Pressure 133/81 151/81 H Pulse Oximetry 100 98 Oxygen Delivery 01/24/25 04:00 01/24/25 06:00 01/24/25 08:00 Temperature 98.2 F 97.5 F L Pulse Rate 91 91 106 H Respiratory Rate 18 18 Blood Pressure 144/91 H 152/96 H Pulse Oximetry 97 97 Oxygen Delivery 01/24/25 08:53 01/24/25 09:11 01/24/25 09:11 Temperature Pulse Rate Respiratory Rate Blood Pressure 153/93 H 139/71 Pulse Oximetry Oxygen Delivery Room Air 01/24/25 09:16 01/24/25 10:41 Temperature Pulse Rate Respiratory Rate Blood Pressure Pulse Oximetry 93 Oxygen Delivery Room Air Room Air Intake/Output Intake/Output: Intake & Output 01/21/25 01/22/25 01/23/25 01/24/25 23:59 23:59 23:59 23:59 Intake Total 270 2645.8 0 Output Total 2 250 Balance 268 2395.8 0 Meds/Results Medications: Active Medications Generic Name Dose Route Start Last Admin Trade Name Freq PRN Reason Stop Dose Admin Acetaminophen 650 mg 01/22/25 15:33 01/23/25 08:48 Acetaminophen 325 Mg Tablet PO 650 mg Q4H PRN Administration Mild Pain (1-3) or Fever Acetaminophen 650 mg 01/22/25 15:33 Acetaminophen 650 Mg Suppository RECTAL Q6H PRN Mild Pain (1-3) or Fever Enoxaparin Sodium 40 mg 01/23/25 09:00 01/24/25 08:17 Enoxaparin 40 Mg/0.4 Ml Syringe SUB-Q 40 mg DAILY [place] Administration Escitalopram Oxalate 5 mg 01/23/25 09:00 01/24/25 08:17 Escitalopram Oxalate 5 Mg Tablet PO 5 mg DAILY [place] Administration Sodium Chloride 1,000 mls @ 125 mls/hr 01/22/25 15:35 01/23/25 18:26 Normal Saline Iv IV CONT 0 mls/hr .Q8H [place] Infusion Levofloxacin/Dextrose 750 mg in 150 mls @ 100 mls/hr 01/22/25 18:00 01/23/25 18:35 Levaquin 750 Mg/D5w 150 Ml IVPB Infused Q24H [place] Infusion Lisinopril 10 mg 01/23/25 09:00 01/24/25 08:16 Lisinopril 10 Mg Tablet PO 10 mg DAILY [place] Administration Perflutren Lipid Microsphere 0 ml 01/22/25 17:12 Perflutren Lipid Microspheres 1.5 Ml Vial Diluted To 10 Ml Total Volume IV P USH 01/25/25 17:12 ONCE PRN adequate visualization Protocol Quetiapine Fumarate 50 mg 01/22/25 21:15 01/24/25 08:17 Quetiapine Fumarate 25 Mg Tablet PO 50 mg Q12HR [place] Administration Thiamine HCl 100 mg 01/23/25 09:00 01/24/25 08:17 Thiamine Hcl 100 Mg Tablet PO 100 mg QAM [place] Administration Trazodone HCl 50 mg 01/22/25 21:15 01/24/25 08:16 Trazodone Hcl 50 Mg Tablet PO 50 mg TID [place] Administration Radiology Results: ITS Impressions Chest X-Ray 01/22/25 13:41 Impression: 1: Retrocardiac infiltrates, atelectasis versus pneumonia. Head CT 01/23/25 07:03 IMPRESSION: No acute intracranial findings. Carotid Doppler Study 01/24/25 06:48 Impression: No hemodynamically significant stenosis of the bilateral internal carotid arteries. Antegrade flow in the bilateral vertebral arteries. Note: The methodology used is an indirect measurement validated against a direct method (such as the NASCET criteria) that compares diameters at the stenosis to the distal ICA. Labs Labs: Laboratory Results - last 24 hr 01/24/25 04:35 WBC 6.8 RBC 3.86 L Hgb 11.4 L Hct 35.6 L MCV 92.2 MCH 29.5 MCHC 32.0 RDW 12.7 Plt Count 332 MPV 9.4 Immature Gran % (Auto) 0.3 Neut % (Auto) 72.6 Lymph % (Auto) 14.7 L [place] % (Auto) 9.4 H Eos % (Auto) 2.3 Baso % (Auto) 0.7 Lymph # (Auto) 1.00 [place] # (Auto) 0.6 Eos # (Auto) 0.2 Baso # (Auto) 0.1 Abs Immat Gran (auto) 0.02 Absolute Neuts (auto) 5.0 Absolute Nucleated RBC 0.000 Nucleated RBC % 0.0 Sodium 137 Potassium 4.0 Chloride 109 H Carbon Dioxide 20 L Anion Gap 8 BUN 6 L D Creatinine 0.89 Estim Creat Clear Calc 51 Estimated GFR > 60 Glucose 100 Calcium 8.9 Magnesium 2.1 Total Bilirubin 0.5 AST 25 ALT 20 Alkaline Phosphatase 141 H Total Protein 7.0 Albumin 3.5 Quality VTE Prophylaxis VTE prophylaxis: mechanical ordered
[2025-01-24] MEDS: levoFLOXacin 750 MG/D5W 150 ML 750 MG/150 ML BAG 100 MG IVPB (17:22)
[2025-01-24] MEDS: SODIUM CHLORIDE 0.9% IV 1,000 ML 125 ML IV CONT (17:28)
[2025-01-25] VITALS (11 sets, daily range): BP systolic 96–148; BP diastolic 56–75; PULSE 54–107; RESP 16–20; TEMP 36.4–37; O2SAT 96–100
[2025-01-25] MEDS: SODIUM CHLORIDE 0.9% IV 1,000 ML 125 ML IV CONT ×2 (01:46→08:39)
[2025-01-25 05:16] LABS: Basophils Absolute Auto 0.1 K/mm3 (0.0-0.1); Basophils Percent Auto 0.9 % (0.2-1.2); Eosinophils Absolute Auto 0.1 K/mm3 (0-0.3); Hematocrit 34.2 % (37.0-47.0); Immature Granulocyte Absolute 0.03 K/mm3 (0.00-0.031); Immature Granulocyte Percent A 0.4 % (0-0.5); Lymphocytes Absolute Auto 1.23 K/mm3 (0.9-3.2); Lymphocytes Percent Auto 17.9 % (18.3-44.2); Mean Corpuscular HGB Conc 32.2 g/dl (32-36); Mean Corpuscular Hemoglobin 30.1 pg (26-34); Mean Corpuscular Volume 93.4 fl (80-100); Mean Platelet Volume 9.2 fl (7.4-10.4); Monocytes Absolute Auto 0.7 K/mm3 (0.1-0.6); Neutrophils Absolute Auto 4.7 K/mm3 (1.3-6.7); Neutrophils Percent Auto 68.8 % (45.5-73.1); Platelet Count Result 316 k/mm3 (150-375); Red Blood Count 3.66 M/mm3 (4.2-5.4); Red Cell Distribution Width 12.8 % (11.5-14.5); White Blood Count 6.9 K/mm3 (4.5-10.0)
[2025-01-25 05:22] LABS: Alanine Aminotransferase 16 U/L (6-35); Albumin Level 3.4 g/dL (3.5-5.1); Alkaline Phosphatase 131 U/L (38-126); Anion Gap 7 mmol/L (4-12); Aspartate Amino Transferase 23 U/L (14-36); Bilirubin,Total 0.6 mg/dL (0.2-1.3); Blood Urea Nitrogen 6 mg/dL (7-17); Calcium 8.6 mg/dL (8.4-10.2); Carbon Dioxide 20 mmol/L (22-30); Chloride 110 mmol/L (98-107); Estimated CRCL calculation 46 ml/min; Estimated Glomerular Filt Rate 55; Glucose 89 mg/dL (65-110); Magnesium 1.9 mg/dL (1.6-2.3); Sodium 137 mmol/L (137-145)
[2025-01-25] MEDS: traZODone HCL 50 MG TABLET PO ×3 (08:38→17:31)
[2025-01-25] MEDS: ENOXAPARIN 40 MG/0.4 ML SYRINGE SUB-Q (08:38)
[2025-01-25] MEDS: ESCITALOPRAM OXALATE 5 MG TABLET PO (08:38)
[2025-01-25] MEDS: QUEtiapine FUMARATE 25 MG TABLET 50 MG PO ×2 (08:38→20:05)
[2025-01-25] MEDS: lisinopriL 10 MG TABLET PO (08:38)
[2025-01-25] MEDS: THIAMINE HCL 100 MG TABLET PO (08:38)
--- NOTE | 2025-01-25 08:57 | P.PNIM_ITS ---
Progress Note: A&P Assessment and Plan (1) Syncope: Code(s): R55 - Syncope and collapse Status: Acute Assessment and Plan: * Exact etiology unknown. * CT head no acute changes, Carotid duplex negative * ECHO 65-70% * Orthostatic vital signs wnl * Trend labs and imaging * monitor (2) Alzheimer's dementia: Code(s): G30.9 - Alzheimer's disease, unspecified; F02.80 - Dementia in other diseases classified elsewhere, unspecified severity, without behavioral disturbance, psychotic disturbance, mood disturbance, and anxiety Status: Chronic Assessment and Plan: * Chronic for pt. * Safety precautions initiated with fall precautions. * Restart home meds when they are confirmed. (3) Hypertension: Code(s): I10 - Essential (primary) hypertension Status: Chronic Assessment and Plan: * Currently stable. * Restart home meds after confirmed. (4) Failure to thrive: Status: Chronic Assessment and Plan: * Pt receiving IVF of NS at 100 ml/hr. * Accurate calorie count * Accurate intake and output. (5) Generalized weakness: Code(s): R53.1 - Weakness Status: Chronic Assessment and Plan: * PT and OT evaluation and treat for discharge planning. * No focal deficits. (6) Frequent UTI: Code(s): N39.0 - Urinary tract infection, site not specified Status: Chronic Assessment and Plan: On Levaquin Plan Pneumonia CXR retrocardiac infiltrates, leukocytosis resolved Blood cultures ordered Continue Levaquin DVT prophylaxis on Sq Lovenox Awaiting ECHO for discharge planning Subjective Date/time seen: 01/25/25 08:57 Interval history: Patient is a AAO x1. Patient will complete her antibiotic today. Exam Const: General: comfortable and no acute distress Other: pleasantly confused, elderly female patient lying supine on stretcher at this time in no acute distress. HENMT: Mouth: Yes dry mucous membranes Eyes: General: appearance normal, both eyes and all related structures Sclera: sclerae normal Pupils: Equal, round and reactive pupils present EOM: EOMs intact bilaterally Neck: Neck: supple and no JVD Resp: Effort & Inspection: normal respiratory effort Auscultation: clear to auscultation bilaterally Cardio: Rate: regular rate Rhythm: regular rhythm Heart sounds: no gallops, no murmurs and no rubs Other: Occasional PVC audible with auscultation of the precordium. No displacement o f PMI. GI: Inspection: non-distended Auscultation: normal bowel sounds Skin: General skin exam: normal color, no rashes or lesions noted, no erythema, No lesion and No rashes Lesions: no lesions noted Rashes: no rashes noted Wounds: no wounds Neuro: Cranial nerves: Yes Equal, round and reactive pupils present Other: Alert and oriented to self only. No acute focal deficits. Extrem: General: normal to inspection, no edema and no pedal edema Other: grossly intact with full active range of motion of all extremities. Psych: Affect: normal affect Other: Confused Objective Data Vital Signs Vital Signs: Vital Signs - 24 hr 01/24/25 09:11 01/24/25 09:11 01/24/25 09:16 Temperature Pulse Rate Respiratory Rate Blood Pressure 153/93 H 139/71 Pulse Oximetry 93 Oxygen Delivery Room Air 01/24/25 10:41 01/24/25 12:00 01/24/25 13:56 Temperature 97.7 F Pulse Rate 75 88 Respiratory Rate 18 Blood Pressure 137/65 Pulse Oximetry 94 Oxygen Delivery Room Air 01/24/25 16:00 01/24/25 20:03 01/24/25 20:30 Temperature Pulse Rate 59 L 95 Respiratory Rate Blood Pressure Pulse Oximetry Oxygen Delivery Room Air 01/24/25 21:17 01/24/25 21:17 01/24/25 21:19 Temperature 98.7 F Pulse Rate 90 90 100 Respiratory Rate 18 Blood Pressure 111/65 111/65 113/72 Pulse Oximetry 96 Oxygen Delivery 01/24/25 21:23 01/25/25 04:00 01/25/25 05:24 Temperature 98.6 F Pulse Rate 109 H 54 L 77 Respiratory Rate 16 Blood Pressure 96/56 L 135/67 Pulse Oximetry 96 Oxygen Delivery 01/25/25 08:00 01/25/25 08:38 01/25/25 08:39 Temperature 97.9 F Pulse Rate 84 88 99 Respiratory Rate 18 Blood Pressure 139/70 148/75 H 131/68 Pulse Oximetry 99 Oxygen Delivery Intake/Output Intake/Output: Intake & Output 01/22/25 01/23/25 01/24/25 01/25/25 23:59 23:59 23:59 23:59 Intake Total 270 2645.8 0 2060.4 Output Total 2 250 Balance 268 2395.8 0 0.4 Meds/Results Medications: Active Medications Generic Name Dose Route Start Last Admin Trade Name Freq PRN Reason Stop Dose Admin Acetaminophen 650 mg 01/22/25 15:33 01/23/25 08:48 Acetaminophen 325 Mg Tablet PO 650 mg Q4H PRN Administration Mild Pain (1-3) or Fever Acetaminophen 650 mg 01/22/25 15:33 Acetaminophen 650 Mg Suppository RECTAL Q6H PRN Mild Pain (1-3) or Fever Enoxaparin Sodium 40 mg 01/23/25 09:00 01/25/25 08:38 Enoxaparin 40 Mg/0.4 Ml Syringe SUB-Q 40 mg DAILY [place] Administration Escitalopram Oxalate 5 mg 01/23/25 09:00 01/25/25 08:38 Escitalopram Oxalate 5 Mg Tablet PO 5 mg DAILY [place] Administration Sodium Chloride 1,000 mls @ 125 mls/hr 01/22/25 15:35 01/25/25 08:39 Normal Saline Iv IV CONT 125 mls/hr .Q8H [place] Administration Levofloxacin/Dextrose 750 mg in 150 mls @ 100 mls/hr 01/22/25 18:00 01/24/25 17:22 Levaquin 750 Mg/D5w 150 Ml IVPB 100 mls/hr Q24H [place] Administration Lisinopril 10 mg 01/23/25 09:00 01/25/25 08:38 Lisinopril 10 Mg Tablet PO 10 mg DAILY [place] Administration Perflutren Lipid Microsphere 0 ml 01/22/25 17:12 Perflutren Lipid Microspheres 1.5 Ml Vial Diluted To 10 Ml Total Volume IV PUSH 01/25/25 17:12 ONCE PRN adequate visualization Protocol Quetiapine Fumarate 50 mg 01/22/25 21:15 01/25/25 08:38 Quetiapine Fumarate 25 Mg Tablet PO 50 mg Q12HR [place] Administration Thiamine HCl 100 mg 01/23/25 09:00 01/25/25 08:38 Thiamine Hcl 100 Mg Tablet PO 100 mg QAM [place] Administration Trazodone HCl 50 mg 01/22/25 21:15 01/25/25 08:38 Trazodone Hcl 50 Mg Tablet PO 50 mg TID [place] Administration Radiology Results: ITS Impressions Chest X-Ray 01/22/25 13:41 Impression: 1: Retrocardiac infiltrates, atelectasis versus pneumonia. Head CT 01/23/25 07:03 IMPRESSION: No acute intracranial findings. Carotid Doppler Study 01/24/25 06:48 Impression: No hemodynamically significant stenosis of the bilateral internal carotid arteri es. Antegrade flow in the bilateral vertebral arteries. Note: The methodology used is an indirect measurement validated against a direct method (such as the NASCET criteria) that compares diameters at the stenosis to the distal ICA. Labs Labs: Laboratory Results - last 24 hr 01/25/25 05:02 WBC 6.9 RBC 3.66 L Hgb 11.0 L Hct 34.2 L MCV 93.4 MCH 30.1 MCHC 32.2 RDW 12.8 Plt Count 316 MPV 9.2 Immature Gran % (Auto) 0.4 Neut % (Auto) 68.8 Lymph % (Auto) 17.9 L Wheeler % (Auto) 10.0 H Eos % (Auto) 2.0 Baso % (Auto) 0.9 Lymph # (Auto) 1.23 Wheeler # (Auto) 0.7 H Eos # (Auto) 0.1 Baso # (Auto) 0.1 Abs Immat Gran (auto) 0.03 Absolute Neuts (auto) 4.7 Absolute Nucleated RBC 0.000 Nucleated RBC % 0.0 Sodium 137 Potassium 4.0 Chloride 110 H Carbon Dioxide 20 L Anion Gap 7 BUN 6 L Creatinine 1.00 Estim Creat Clear Calc 46 Estimated GFR 55 L Glucose 89 Calcium 8.6 Magnesium 1.9 Total Bilirubin 0.6 AST 23 ALT 16 Alkaline Phosphatase 131 H Total Protein 7.0 Albumin 3.4 L Hospitalist [facility] Advance Care Plan I have confirmed that the patient's Advanced Care Plan is present, code status is documented, or surrogate decision maker is listed in patient medical record.: Yes Medication Reconciliation I have utilized all available resources to obtain, update and review the patients current medications (includes all prescriptions, OTC, herbals, cannabis, and nutritional supplements).: Yes
--- NOTE | 2025-01-25 20:57 | PC.NURSE ---
Patient is refusing to wear the desk monitor at this time despite repeated education and placement. RN will continue to monitor for rest of shift.
[2025-01-26 06:00] VITALS: BP 144/76; PULSE 76; RESP 16; TEMP 36.3; O2SAT 97
[2025-01-26 06:11] LABS: Hematocrit 34.4 % (37.0-47.0); Hemoglobin 11.1 g/dL (12.0-15.0); Mean Corpuscular HGB Conc 32.3 g/dl (32-36); Mean Corpuscular Hemoglobin 29.8 pg (26-34); Mean Corpuscular Volume 92.2 fl (80-100); Mean Platelet Volume 9.2 fl (7.4-10.4); Platelet Count Result 349 k/mm3 (150-375); Red Blood Count 3.73 M/mm3 (4.2-5.4); Red Cell Distribution Width 12.8 % (11.5-14.5); White Blood Count 6.9 K/mm3 (4.5-10.0)
[2025-01-26 06:28] LABS: Alanine Aminotransferase 15 U/L (6-35); Albumin Level 3.4 g/dL (3.5-5.1); Alkaline Phosphatase 137 U/L (38-126); Anion Gap 6 mmol/L (4-12); Aspartate Amino Transferase 28 U/L (14-36); Bilirubin,Total 0.5 mg/dL (0.2-1.3); Blood Urea Nitrogen 8 mg/dL (7-17); Calcium 9.1 mg/dL (8.4-10.2); Carbon Dioxide 23 mmol/L (22-30); Chloride 108 mmol/L (98-107); Estimated CRCL calculation 48 ml/min; Estimated Glomerular Filt Rate 58; Glucose 94 mg/dL (65-110); Potassium 3.8 mmol/L (3.4-5.0); Sodium 137 mmol/L (137-145)
[2025-01-26 07:49] VITALS: BP 149/74; PULSE 85; RESP 16; TEMP 36.4; O2SAT 98
[2025-01-26 07:50] VITALS: BP 142/86; BP 151/84
[2025-01-26 08:00] VITALS: PULSE 68
[2025-01-26] MEDS: ESCITALOPRAM OXALATE 5 MG TABLET PO (08:14)
[2025-01-26] MEDS: QUEtiapine FUMARATE 25 MG TABLET 50 MG PO (08:14)
[2025-01-26] MEDS: lisinopriL 10 MG TABLET PO (08:14)
[2025-01-26] MEDS: ENOXAPARIN 40 MG/0.4 ML SYRINGE SUB-Q (08:14)
[2025-01-26] MEDS: THIAMINE HCL 100 MG TABLET PO (08:14)
[2025-01-26] MEDS: traZODone HCL 50 MG TABLET PO ×3 (08:14→17:26)
[2025-01-26 12:00] VITALS: PULSE 73
[2025-01-26 14:00] VITALS: BP 133/50; PULSE 86; RESP 16; TEMP 36.3; O2SAT 96
--- NOTE | 2025-01-26 14:01 | PCOTNOTE ---
Patient refused treatment this session due to Nausea and dizziness. NADIR mccollum.
--- NOTE | 2025-01-26 15:18 | P.DS_ITS ---
DS: Admitting Diagnosis Discharge Date 01/26/2025 Admitting Diagnosis Syncope DS: Discharge Diagnosis Discharge Diagnosis (1) Syncope: Code(s): R55 - Syncope and collapse Status: Acute Assessment and Plan: Resolved * Exact etiology unknown. * CT head no acute changes, Carotid duplex negative * ECHO 65-70% * Orthostatic vital signs wnl * Trend labs and imaging * monitor (2) Alzheimer's dementia: Code(s): G30.9 - Alzheimer's disease, unspecified; F02.80 - Dementia in other diseases classified elsewhere, unspecified severity, without behavioral disturbance, psychotic disturbance, mood disturbance, and anxiety Status: Chronic Assessment and Plan: * Chronic for pt. * Safety precautions initiated with fall precautions. * Restart home meds when they are confirmed. (3) Hypertension: Code(s): I10 - Essential (primary) hypertension Status: Chronic Assessment and Plan: * Currently stable. * Restart home meds after confirmed. (4) Failure to thrive: Status: Chronic Assessment and Plan: . * Accurate calorie count * Accurate intake and output. (5) Generalized weakness: Code(s): R53.1 - Weakness Status: Chronic Assessment and Plan: * PT and OT evaluation and treat for discharge planning. * No focal deficits. (6) Frequent UTI: Code(s): N39.0 - Urinary tract infection, site not specified Status: Chronic Assessment and Plan: On Levaquin DS: Summary Hospital Course Hospital Course: 69 year old female pt with PMH of Alzheimers Dementia who is Alert and oriented to self only at baseline, HTN, Failure to thrive, Generalized weakness, and frequent UTI's who resides at [facility] is brought to the ER after a brief syncopal episode. I am told by the ER provider that EMS relayed to him that the pt was at baseline walking back to her room after eating and suddenly complained of being too weak to continue walking. The staff reportedly put a chair underneath her and they reported she had a 1-2 minute LOC. At no time did patient falls or have any acute head trauma or injury. There was no reported seizure activity. Patient is not on a blood thinner According to med list from long term. In the emergency room workup performed shows leukocytosis with WBCs of 13.0, EKG normal with sinus rhythm with occasional PVCs at 83 beats per minute without any ectopy or ischemia and chest x-ray showed retrocardiac infiltrates concerning for atelectasis versus pneumonia. Urinalysis is ordered however to this point they have been unable to obtain a clean sample so nurse is going to straight catheterize. Patient received a 1 L bolus of IV fluids in the emergency room and is placed on maintenance rate of 125 mL/hour. Patient's Granddaughter and brother are both at the bedside, were not present when this incident occurred and cannot provide any meaningful information regarding the events of today but they do verify that patient does appear to be at her current baseline status and confirmed that she is do not resuscitate which is on patient's chart. During the evaluation patient is currently doing well. No episodes of syncope. Called her daughter Ms. Todd and updated. Status at Discharge Cognitive/behavioral status at discharge: Stable Time Spent with Patient Time attestation: Total time spent providing and/or coordinating discharge services:45 minutes Exam Const: General: comfortable and no acute distress Other: pleasantly confused, elderly female patient lying supine on stretcher at this time in no acute distress. HENMT: Mouth: Yes dry mucous membranes Eyes: General: appearance normal, both eyes and all related structures Sclera: sclerae normal Pupils: Equal, round and reactive pupils present EOM: EOMs intact bilaterally Neck: Neck: supple and no JVD Resp: Effort & Inspection: normal respiratory effort Auscultation: clear to auscultation bilaterally Cardio: Rate: regular rate Rhythm: regular rhythm Heart sounds: no gallops, no murmurs and no rubs Other: Occasional PVC audible with auscultation of the precordium. No displacement of PMI. GI: Inspection: non-distended Auscultation: normal bowel sounds Skin: General skin exam: normal color, no rashes or lesions noted, no robe thema, No lesion and No rashes Lesions: no lesions noted Rashes: no rashes noted Wounds: no wounds Neuro: Cranial nerves: Yes Equal, round and reactive pupils present Other: Alert and oriented to self only. No acute focal deficits. Extrem: General: normal to inspection, no edema and no pedal edema Other: grossly intact with full active range of motion of all extremities. Psych: Affect: normal affect Other: Confused DS: Data Data Completed and Pending Labs on day of discharge: Labs from last 24 hours 01/26/25 05:36 WBC 6.9 RBC 3.73 L Hgb 11.1 L Hct 34.4 L MCV 92.2 MCH 29.8 MCHC 32.3 RDW 12.8 Plt Count 349 MPV 9.2 Sodium 137 Potassium 3.8 Chloride 108 H Carbon Dioxide 23 Anion Gap 6 BUN 8 Creatinine 0.95 Estim Creat Clear Calc 48 Estimated GFR 58 L Glucose 94 Calcium 9.1 Total Bilirubin 0.5 AST 28 ALT 15 Alkaline Phosphatase 137 H Total Protein 7.0 Albumin 3.4 L Preliminary micro results at discharge 01/22/25 19:13 Blood Culture - Preliminary Blood 01/22/25 18:49 Blood Culture - Preliminary Blood Imaging Radiologist's impression: ITS Impressions Chest X-Ray 01/22/25 13:41 Impression: 1: Retrocardiac infiltrates, atelectasis versus pneumonia. Head CT 01/23/25 07:03 IMPRESSION: No acute intracranial findings. Carotid Doppler Study 01/24/25 06:48 Impression: No hemodynamically significant stenosis of the bilateral internal carotid arteries. Antegrade flow in the bilateral vertebral arteries. Note: The methodology used is an indirect measurement validated against a direct method (such as the NASCET criteria) that compares diameters at the stenosis to the distal ICA. Discharge Plan Discharge Attending physician on discharge: Owen Ortiz Discharging Clinician: Owen Ortiz Anticipated Discharge Date/Time: 01/26/25 11:41 Patient Disposition: [facility] Activity: as tolerated Diet: heart healthy Discharge Instructions: Per Care Coordination, patient to discharge to [facility] ([phone]) at discharge. Please fax discharge instructions and medication sheets to [phone]. Check blood pressure 1 to 2 times a day. Record and bring into your doctor for review. Call your doctor if your blood pressure is greater than 180/110 or less than 90/45. Walk with cane or other assist device. Take precautions to avoid falls. Rise slowly from a lying or sitting position. Pause before standing or walking. Contact your doctor or call 911 and come to the Emergency Room if you have any type of trauma, lightheadedness with standing or other worrisome symptoms. Avoid NSAIDs (ibuprofen, naproxen, Aleve). Tylenol is safe to take. Follow-up with your primary care provider in 1-2 weeks. Please call for appointment. Follow-up with Cardiology in 2-4 weeks. Please call for an appointment. Thank you for using [facility] for your health care needs. Patient Instructions: Antibiotic Form Patient Language: [place]de[place] Stand Alone Forms: General Discharge Information Follow-up/Referrals: Jenny,GONSALO Becerra [Primary Care Provider] - Discharge Medications: Continued quetiapine 25 mg tablet 50 mg PO BID trazodone 50 mg tablet 50 mg PO TID lisinopril 10 mg tablet 10 mg PO DAILY escitalopram oxalate 5 mg tablet 5 mg PO DAILY thiamine HCl (vitamin B1) 100 mg capsule 100 mg PO DAILY Date of admission: 01/23/25 10:50 Primary Care Provider: Jenny,Mariam Admitting Provider: Arun Thompson Attending physician on admission: Arun Thompson Condition: Stable
[2025-01-26] MEDS: levoFLOXacin 750 MG TABLET PO (17:26)
== END 2025-01-26 18:20 | DRG 312 ==
LOC: ANHED 15:33 → ANH2MED 16:45
PROVIDERS: Nurse Practitioner Adult Health; Admitting Provider Internal Medicine; Emergency Provider Emergency Medicine; PCP Nurse Practitioner Family; Visit Provider General Practice
DX: R55 Syncope and collapse (principal); D72.829 Elevated white blood cell count, unspecified; G30.9 Alzheimer's disease, unspecified; F02.80 Dementia in other diseases classified elsewhere, unspecified severity, without behavioral disturbance, psychotic disturbance, mood disturbance, and anxiety; I10 Essential (primary) hypertension; Z66 Do not resuscitate; Z88.0 Allergy status to penicillin
CPT/HCPCS: 36415; 70450; 71046; 80053; 81003; 83735; 85025; 85027; 87040; 93005; 93306; 93880; 96361; 96374; 96375; 97161; 97165; 97535; 99285; A9270; G0378; J1650; J1956; J7030

== ENCOUNTER 2025-04-17 14:07 | Inpatient (IN) | payer MEDICARE, SELFPAY ==
--- NOTE | ~2025-04-17 | CT_ITS ---
CLINICAL INDICATION: Unintentional weight loss COMPARISON: None. TECHNIQUE: An enhanced CT of the abdomen and pelvis was performed utilizing multislice spiral Aniika ue reconstructed at 5 mm slice thickness. Coronal and sagittal reconstructions were performed. This CT examination was performed utilizing dose reduction techniques. DLP: 681 mGy-cm FINDINGS/OBSERVATIONS: Lung: Left basilar atelectasis with bibasilar thickening, left greater than right. Although not a dedicated CTA, no filling defect is identified within the main or proximal pulmonary a rteries. No pulmonary artery enlargement is appreciated. The heart is of normal size, without pericardial effusion. Mediastinum: No pathologically enlarged or morphologically suspicious lymph nodes are identified within the medias tinum, bilateral axilla, within the soft tissues of the anterior chest wall. Soft tissues of the chest: The visualized portions of the soft tissues of the chest are unremarkable. Bones of the chest: No acute fracture. No lytic or blastic lesions are identified. Significant kyphosis is identified, distorting the contour of the mediastinum Liver: The liver enhances homogeneously and is not enlarged. Gallbladder and biliary system: The gallbladder is distended, and contains a large lamellated stone measuring 2.8 x 2.4 cm. Densely calcified gallbladder wall is noted along the fundus of the gallbladder.. Pancreas: The pancreas enhances homogeneously, without ductal dilatation. Spleen: Kidneys: The bilateral kidneys enhance symmetrically without hydronephrosis or renal calculi. Adrenal glands: Unremarkable. Gastrointestinal tract: Fecal stasis is identified distending the rectum with mural thickening and presacral inflammation, fo r which fecal impaction is suspected. This extends to the level of the sacral promontory. Appendix: The appendix is not definitively visualized. However, no pericecal inflammatory change is identified suggest the presence of acute appendicitis. Vasculature: Densely calcified atherosclerotic disease is present. No aneurysmal dilatation. Lymph nodes: Scattered nonpathologically enlarged lymph nodes within the root of the mesentery and deep in the pel vis. Within the soft tissues of the bilateral inguinal regions are multiple morphologically suspicious non pathologically enlarged lymph nodes detected bilaterally. The largest measures 14 mm in short axis dimension (within the right groin, axial series, image 219). Pelvic structures: The bladder is distended, containing multiple diverticula The uterus is anteverted and anteflexed, and largely atrophic. Body wall and musculoskeletal: S-shaped curvature of the thoracolumbar spine is identified. Age advanced degenerative disease is identified with osteophyte formation, disc space narrowing, endp late changes and vacuum phenomena. Significant facet arthropathy is noted. No lytic or blastic lesions are identified. IMPRESSION: Findings consistent with significant fecal impaction distending the rectum with mural thickening and presacral induration. No morphologically suspicious lymph nodes within the bilateral inguinal regions. Calcification of the gallbladder fundus with a large lamellated stone. Reviewed, dictated and finalized at location A. IMPRESSION: Findings consistent with significant fecal impaction distending the rectum with mural thickening and presacral induration. No morphologically suspicious lymph nodes within the bilateral inguinal regions . Calcification of the gallbladder fundus with a large lamellated stone.
--- NOTE | ~2025-04-17 | US_ITS ---
EXAMINATION: US renal BI DATE: 04/18/2025 09:20 INDICATION: Acute renal insufficiency TECHNIQUE: Multiple ultrasound grayscale images of the kidneys were obtained. COMPARISON: None. FINDINGS: The right kidney measures 9.2 x 4.6 x 3.1 cm. The left kidney measures 8.5 x 4.3 x 4.3 cm. The kidney s demonstrate normal echogenicity. 1.6 cm anechoic left renal cyst. There is no hydronephrosis in eit her kidney. No stones identified. The bladder is normal with bilateral ureteral jets visualized on c olor Doppler. IMPRESSION: 1. 1.6 cm left renal cyst. Otherwise normal kidneys without hydronephrosis. Reviewed, dictated and finalized at location A.
--- NOTE | ~2025-04-17 | XR_ITS ---
EXAMINATION: XR chest 1V portable Exam Date/Time: 04/17/2025 14:40 CDT HISTORY: lethargy Comparison: 01/22/2025. RESULT: Lines, tubes, and devices: None. Lungs and pleura: Stable left hemidiaphragm elevation. Streaky left basilar atelectasis/scar. Otherw ise clear. Cardiomediastinal silhouette: Stable. Other: No acute osseous or upper abdominal finding. Cholelithiasis. IMPRESSION: No acute cardiopulmonary process. Reviewed, dictated and finalized at location K.
--- NOTE | ~2025-04-17 | XR_ITS ---
XR abdomen/kub 1V 04/20/2025 10:37 Indication: Fecal impaction Procedure: KUB Comparison: CT dated 04/19/2025 Findings: There is a partially calcified gallbladder right upper abdomen. Nonobstructive bowel gas pa ttern. There is residual contrast in the bladder. No abnormal calcifications. Lung bases unremarkable . Impression: 1: No acute abdominal abnormality. 2: Partially calcified gallbladder wall. Reviewed, dictated and finalized at location B. Impression: 1: No acute abdominal abnormality. 2: Partially calcified gallbladder wall.
[2025-04-17 14:08] VITALS: BP 132/63; PULSE 91; RESP 16; TEMP 36.5; O2SAT 100
--- NOTE | 2025-04-17 14:50 | ED_ITS ---
HPI - General Adult General Chief complaint: Unspecified <Vito Thomas MD - Last Filed: 04/18/25 07:30> Stated complaint: lethargic? <Vito Thomas MD - Last Filed: 04/18/25 07:30> Time Seen by Provider: 04/17/25 14:35 <Vito Thomas MD - Last Filed: 04/18/25 07:30> History of Present Illness HPI narrative: 69-year-old female present to the emergency department for evaluation for per lethargy. assisted stay the patient did not have breakfast this morning, the patient states that she did have breakfast. Patient is unsure why she is in the emergency department. Patient is A&O x2 at her baseline. Denies any chest pain shortness of breath. Patient did have some mild abdominal tenderness to palpation but denies any other pain or injury. <Vito Thomas MD - Last Filed: 04/18/25 07:30> 69-year-old female present to the emergency department for evaluation for of lethargy. assisted say the patient did not have breakfast this morning, the patient states that she did have breakfast. Patient is unsure why she is in the emergency department. Patient is A&O x2 at her baseline. Denies any chest pain shortness of breath. Patient did have some mild abdominal tenderness to palpation but denies any other pain or injury. <Kaye Leone PA-C - Last Filed: 04/17/25 22:25> Related Data Home medications: Home Medications ?Medication ?Instructions ?Recorded ?Confirmed ?Last Taken ?Type escitalopram oxalate 5 mg tablet 5 mg PO DAILY 01/22/25 04/17/25 04/17/25 08:00 History lisinopril 10 mg tablet 10 mg PO DAILY 01/22/25 04/17/25 04/17/25 08:00 History quetiapine 25 mg tablet 50 mg PO BID 01/22/25 04/17/25 04/17/25 08:00 History thiamine HCl (vitamin B1) 100 mg 100 mg PO DAILY 01/22/25 04/17/25 04/17/25 History capsule trazodone 50 mg tablet 50 mg PO TID 01/22/25 04/17/25 04/17/25 12:00 History d-mannose 500 mg capsule 1,000 mg PO DAILY 04/17/25 04/17/25 04/17/25 07:00 History loperamide 2 mg capsule 2 mg PO QID PRN loose stool 04/17/25 04/17/25 Unknown History (Anti-Diarrheal (loperamide)) melatonin 3 mg capsule 3 mg PO HS 04/17/25 04/17/25 04/16/25 19:00 History menthol 0.44 %-zinc oxide 20.6 % 1 applic topical BID 04/17/25 04/17/25 04/17/25 07:00 History topical ointment (CalaSoothe) <Vito Thomas MD - Last Filed: 04/18/25 07:30> Allergies/adverse reactions: Allergies Allergy/AdvReac Type Severity Reaction Status Date / Time Penicillins Allergy Severe Anaphylaxis Verified 04/17/25 14:13 acetaminophen Allergy Unknown Verified 04/17/25 14:13 <Vito Thomas MD - Last Filed: 04/18/25 07:30> Review of Systems 2 Review of Systems: All systems reviewed & are unremarkable except as noted in HPI and below <Vito Thomas MD - Last Filed: 04/18/25 07:30> PMFSH Past Medical History Medical History: Medical History (Updated 04/17/25 @ 22:25 by Kaye Leone PA-C) Leukocytosis Frequent UTI Generalized weakness Failure to thrive Hypertension Alzheimer's dementia <Vito Thomas MD - Last Filed: 04/18/25 07:30> Social History Social History: Social History Smoking status: Never smoker Alcohol intake: never Substance use: never Substance use type: does not use Do You Feel Safe in your Home?: Yes Lack of Transportation: No Lack of Food: Never True Current Housing: I Have Housing Concerned About Future Housing: No Difficulty Paying Gas/Electric Bills: No Difficulty Paying for Meds: No Currently Unemployed: No Education: Don't Know Difficulty w/ Childcare or Family Care: No Spiritual care concerns: No <Vito Thomas MD - Last Filed: 04/18/25 07:30> Exam 2 Narrative: APPEARANCE: Well appearing, no pain, no distress, well-nourished. HEAD: normocephalic, atraumatic. EYES: PERRLA/EOMI, conjunctivae clear. NOSE: Normal no drainage EARS:TMS clear with good light reflex. THROAT: Pharynx clear, no exudate. NECK: Supple. No adenopathy, no masses. RESPIRATORY: Airway patent, respirations nonlabored. Clear to auscultation bilaterally, no rales, rhonchi, wheezing. CARDIOVASCULAR: Regular rate and rhythm without murmurs rubs or gallops. ABDOMINAL: Soft, nontender, nondistended, normal bowel sounds MUSCULOSKELETAL: Moves all extremities. Strength/ROM intact, No edema, No calf tenderness. NEURO: Alert. Cranial nerves II through XII intact. Grossly intact SKIN: Warm, dry. Normal Color <Vito Thomas MD - Last Filed: 04/18/25 07:30> Course Consultations Consultation #1: Spoke with hospitalist about patient and workup who accepts admission < Kaye Leone PA-C - Last Filed: 04/17/25 22:25> Date: 04/17/25 <Kaye Leone PA-C - Last Filed: 04/17/25 22:25> Vital Signs Vital signs: Vital Signs Temperature 97.7 F 04/17/25 14:08 Pulse Rate 91 04/17/25 14:08 Respiratory Rate 16 04/17/25 14:08 Blood Pressure 132/63 04/17/25 14:08 Pulse Oximetry 100 04/17/25 14:08 Oxygen Delivery Room Air 04/17/25 14:08 Temperature 98.0 F 04/18/25 04:00 Pulse Rate 96 04/18/25 04:00 Respiratory Rate 20 04/18/25 04:00 Blood Pressure 133/78 04/18/25 04:00 Pulse Oximetry 98 04/18/25 04:00 Oxygen Delivery Room Air 04/17/25 14:08 <Vito Thomas MD - Last Filed: 04/18/25 07:30> Vital Signs Temperature 97.7 F 04/17/25 14:08 Pulse Rate 91 04/17/25 14:08 Respiratory Rate 16 04/17/25 14:08 Blood Pressure 132/63 04/17/25 14:08 Pulse Oximetry 100 04/17/25 14:08 Oxygen Delivery Room Air 04/17/25 14:08 Temperature 98.0 F 04/18/25 04:00 Pulse Rate 96 04/18/25 04:00 Respiratory Rate 20 04/18/25 04:00 Blood Pressure 133/78 04/18/25 04:00 Pulse Oximetry 98 04/18/25 04:00 Oxygen Delivery Room Air 04/17/25 14:08 <Kaye Leone PA-C - Last Filed: 04/17/25 22:25> Medical Decision Making MDM Narrative Medical decision making narrative: 69-year-old female presents emergency department for reported lethargy. Patient is not lethargic at time of evaluation. Patient is currently afebrile with no leukocytosis hemoglobin 11.6. Patient does have a mild YESICA on her CMP with a creatinine of 1.46 was higher than her baseline of 1.0. Patient was treated with a L of lactated Ringer's. Patient was negative for influenza RSV and for COVID, chest x-ray shows no acute cardiopulmonary abnormality. At time of sign-out UA is pending. Patient was well-appearing and my last evaluation and family is comfortable the patient being discharged back to her care facility. Patient has been tolerating p.o. in the emergency department. < Vito Thomas MD - Last Filed: 04/18/25 07:30> 69-year-old female presents emergency department for reported lethargy. Patient is not lethargic at time of evaluation. Patient is currently afebrile with no leukocytosis hemoglobin 11.6. Patient does have a mild YESICA on her CMP with a creatinine of 1.46 was higher than her baseline of 1.0. Patient was treated with a L of lactated Ringer's. Patient was negative for influenza RSV and for COVID, chest x-ray shows no acute cardiopulmonary abnormality. At time of sign-out UA is pending. Patient was well-appearing and my last evaluation We are still unable to obtain urine sample at this time. Will consult hospitalist for admission for YESICA and continued hydration. Will continue to obtain urine sample <Kaye Leone PA-C - Last Filed: 04/17/25 22:25> Vital Signs Vital Signs: Vital Signs Temperature 97.7 F 04/17/25 14:08 Pulse Rate 91 04/17/25 14:08 Respiratory Rate 16 04/17/25 14:08 Blood Pressure 132/63 04/17/25 14:08 Pulse Oximetry 100 04/17/25 14:08 Oxygen Delivery Room Air 04/17/25 14:08 Temperature 98.0 F 04/18/25 04:00 Pulse Rate 96 04/18/25 04:00 Respiratory Rate 20 04/18/25 04:00 Blood Pressure 133/78 04/18/25 04:00 Pulse Oximetry 98 04/18/25 04:00 Oxygen Delivery Room Air 04/17/25 14:08 <Vito Thomas MD - Last Filed: 04/18/25 07:30> Vital Signs Temperature 97.7 F 04/17/25 14:08 Pulse Rate 91 04/17/25 14:08 Respiratory Rate 16 04/17/25 14:08 Blood Pressure 132/63 04/17/25 14:08 Pulse Oximetry 100 04/17/25 14:08 Oxygen Delivery Room Air 04/17/25 14:08 Temperature 98.0 F 04/18/25 04:00 Pulse Rate 96 04/18/25 04:00 Respiratory Rate 20 04/18/25 04:00 Blood Pressure 133/78 04/18/25 04:00 Pulse Oximetry 98 04/18/25 04:00 Oxygen Delivery Room Air 04/17/25 14:08 <Kaye Leone PA-C - Last Filed: 04/17/25 22:25> Lab Data Result diagrams: 04/18/25 05:58 04/18/25 05:58 <Vito Thomas MD - Last Filed: 04/18/25 07:30> Labs: Lab Results 04/17/25 04/17/25 04/17/25 Range/Units 15:03 16:35 16:38 WBC 7.8 (4.5-10.0) K/mm3 RBC 4.01 L (4.2-5.4) M/mm3 Hgb 11.6 L (12.0-15.0) g/dL Hct 36.2 L (37.0-47.0) % MCV 90.3 (80-100) fl MCH 28.9 (26-34) pg MCHC 32.0 (32-36) g/dl RDW 14.4 (11.5-14.5) % Plt Count 404 H (150-375) k/mm3 MPV 9.0 (7.4-10.4) fl Immature Gran % (Auto) 0.4 (0-0.5) % Neut % (Auto) 74.7 H (45.5-73.1) % Lymph % (Auto) 14.1 L (18.3-44.2) % [place] % (Auto) 9.5 H (2.6-8.5) % Eos % (Auto) 0.9 (0-4.4) % Baso % (Auto) 0.4 (0.2-1.2) % Lymph # (Auto) 1.10 (0.9-3.2) K/mm3 [place] # (Auto) 0.7 H (0.1-0.6) K/mm3 Eos # (Auto) 0.1 (0-0.3) K/mm3 Baso # (Auto) 0.0 (0.0-0.1) K/mm3 Abs Immat Gran (auto) 0.03 (0.00-0.031) K/mm3 Absolute Neuts (auto) 5.8 (1.3-6.7) K/mm3 Absolute Nucleated RBC 0.000 (0.0-0.012) K/mm3 Nucleated RBC % 0.0 (0.0-0.2) % Sodium 132 L (137-145) mmol/L Potassium 4.0 (3.4-5.0) mmol/L Chloride 102 (98-107) mmol/L Carbon Dioxide 16 L (22-30) mmol/L Anion Gap 14 H (4-12) mmol/L BUN 27 H D (7-17) mg/dL Creatinine 1.46 H (0.7-1.0) mg/dL Estim Creat Clear Calc 30 ml/min Estimated GFR 35 L (59 - ) Glucose 84 (65-110) mg/dL Calcium 9.5 (8.4-10.2) mg/dL Total Bilirubin 0.8 (0.2-1.3) mg/dL AST 27 (14-36) U/L ALT 15 (6-35) U/L Alkaline Phosphatase 134 H (38-126) U/L Total Protein 7.7 (6.3-8.2) g/dL Albumin 3.7 (3.5-5.1) g/dL Influenza A (RT-PCR) Negative (Negative) Influenza B (RT-PCR) Negative (Negative) RSV (RT-PCR) Negative (Negative) SARS-CoV-2 RNA (RT-PCR) Negative (Negative) <Vito Thomas MD - Last Filed: 04/18/25 07:30> Lab Results 04/17/25 04/17/25 04/17/25 Range/Units 15:03 16:35 16:38 WBC 7.8 (4.5-10.0) K/mm3 RBC 4.01 L (4.2-5.4) M/mm3 Hgb 11.6 L (12.0-15.0) g/dL Hct 36.2 L (37.0-47.0) % MCV 90.3 (80-100) fl MCH 28.9 (26-34) pg MCHC 32.0 (32-36) g/dl RDW 14.4 (11.5-14.5) % Plt Count 404 H (150-375) k/mm3 MPV 9.0 (7.4-10.4) fl Immature Gran % (Auto) 0.4 (0-0.5) % Neut % (Auto) 74.7 H (45.5-73.1) % Lymph % (Auto) 14.1 L (18.3-44.2) % [place] % (Auto) 9.5 H (2.6-8.5) % Eos % (Auto) 0.9 (0-4.4) % Baso % (Auto) 0.4 (0.2-1.2) % Lymph # (Auto) 1.10 (0.9-3.2) K/mm3 [place] # (Auto) 0.7 H (0.1-0.6) K/mm3 Eos # (Auto) 0.1 (0-0.3) K/mm3 Baso # (Auto) 0.0 (0.0-0.1) K/mm3 Abs Immat Gran (auto) 0.03 (0.00-0.031) K/mm3 Absolute Neuts (auto) 5.8 (1.3-6.7) K/mm3 Absolute Nucleated RBC 0.000 (0.0-0.012) K/mm3 Nucleated RBC % 0.0 (0.0-0.2) % Sodium 132 L (137-145) mmol/L Potassium 4.0 (3.4-5.0) mmol/L Chloride 102 (98-107) mmol/L Carbon Dioxide 16 L (22-30) mmol/L Anion Gap 14 H (4-12) mmol/L BUN 27 H D (7-17) mg/dL Creatinine 1.46 H (0.7-1.0) mg/dL Estim Creat Clear Calc 30 ml/min Estimated GFR 35 L (59 - ) Glucose 84 (65-110) mg/dL Calcium 9.5 (8.4-10.2) mg/dL Total Bilirubin 0.8 (0.2-1.3) mg/dL AST 27 (14-36) U/L ALT 15 (6-35) U/L Alkaline Phosphatase 134 H (38-126) U/L Total Protein 7.7 (6.3-8.2) g/dL Albumin 3.7 (3.5-5.1) g/dL Influenza A (RT-PCR) Negative (Negative) Influenza B (RT-PCR) Negative (Negative) RSV (RT-PCR) Negative (Negative) SARS-CoV-2 RNA (RT-PCR) Negative (Negative) <Kaye Leone PA-C - Last Filed: 04/17/25 22:25> Critical Care Time Critical Care Time Critical Care Time: Yes <Kaye Leone PA-C - Last Filed: 04/17/25 22:25> Total Critical Care Time: 35 <Kaye Leone PA-C - Last Filed: 04/17/25 22:25> Discharge Plan Discharge Clinical Impression: Acute kidney injury <Vito Thomas MD - Last Filed: 04/18/25 07:30> Patient Disposition: Still a Patient <Vito Thomas MD - Last Filed: 04/18/25 07:30> Condition: Stable <Vito Thomas MD - Last Filed: 04/18/25 07:30>
[2025-04-17 15:43] LABS: Influenza A QL RT-PCR Negative (Negative); Influenza B QL RT-PCR Negative (Negative); RSV RNA, RT-PCR Negative (Negative); SARS-CoV-2 RNA PCR Negative (Negative)
[2025-04-17 16:51] LABS: Hematocrit 36.2 % (37.0-47.0); Hemoglobin 11.6 g/dL (12.0-15.0); Immature Granulocyte Percent A 0.4 % (0-0.5); Lymphocytes Absolute Auto 1.10 K/mm3 (0.9-3.2); Mean Corpuscular HGB Conc 32.0 g/dl (32-36); Mean Corpuscular Hemoglobin 28.9 pg (26-34); Mean Corpuscular Volume 90.3 fl (80-100); Nucleated Red Blood Cells Absolute Auto 0.000 K/mm3 (0.0-0.012); Nucleated Red Blood Cells Perc 0.0 % (0.0-0.2); Platelet Count Result 404 k/mm3 (150-375); Red Blood Count 4.01 M/mm3 (4.2-5.4); White Blood Count 7.8 K/mm3 (4.5-10.0)
[2025-04-17 16:52] LABS: Alanine Aminotransferase 15 U/L (6-35); Albumin Level 3.7 g/dL (3.5-5.1); Alkaline Phosphatase 134 U/L (38-126); Anion Gap 14 mmol/L (4-12); Aspartate Amino Transferase 27 U/L (14-36); Bilirubin,Total 0.8 mg/dL (0.2-1.3); Blood Urea Nitrogen 27 mg/dL (7-17); Calcium 9.5 mg/dL (8.4-10.2); Carbon Dioxide 16 mmol/L (22-30); Chloride 102 mmol/L (98-107); Estimated CRCL calculation 30 ml/min; Estimated Glomerular Filt Rate 35; Glucose 84 mg/dL (65-110); Potassium 4.0 mmol/L (3.4-5.0); Sodium 132 mmol/L (137-145); Total Protein 7.7 g/dL (6.3-8.2)
[2025-04-17] MEDS: LACTATED RINGERS 1,000 ML 999 ML IV CONT (17:14)
--- NOTE | 2025-04-17 19:19 | PC.NURSE ---
Report received from NADIR Bruce. Assumed care of patient at this time.
[2025-04-17 19:48] VITALS: O2SAT 100
[2025-04-17 20:00] VITALS: BP 150/82; PULSE 90; RESP 17; O2SAT 100
--- NOTE | 2025-04-17 21:39 | PC.NURSE ---
Patients fluids had finished, was attempted to go to the bathroom to provide a UA, but patient had urinated on herself when attempting to get to w/c. Patient was taken to the bathroom, and then she had a BM. Patient did not provide a UA. Patients refusing straight cath. Patients son at bedside requested to speak with PA, who now is requesting admission. Patient had pulled her IV out when she was in the bathroom. PA notified. Hospitalist speaking with PA at this time.
[2025-04-17 21:53] VITALS: BP 132/70; PULSE 89; RESP 18; TEMP 36.6; O2SAT 100
--- NOTE | 2025-04-17 21:56 | P.HP_ITS ---
H&P: HPI History of Present Illness Date/Time: 04/17/25 21:56 Chief Complaint: Weakness Narrative: 69-year-old female with Alzheimer's dementia, baseline A&O x1-2, frequent UTI, history of failure to thrive presents from [facility] with weakness. His reported she has not been eating or drinking much in the past few days. The patient is an unreliable historian due to her dementia. Brother is at bedside. Blood pressure on arrival 132/63. Afebrile. WBC 7.8, hemoglobin 11.6, sodium 132, anion gap 14, BUN 27, serum creatinine 1.46. Chest x-ray without acute process. 1 L lactated Ringer's was administered. Review of Systems Review of Systems: All systems reviewed & are unremarkable except as noted in HPI and below (Subjective/HPI) [facility] Past Medical History Medical History (Updated 04/17/25 @ 21:58 by Ange Dang MD) Leukocytosis Frequent UTI Generalized weakness Failure to thrive Hypertension Alzheimer's dementia Social History Social History Smoking status: Never smoker Alcohol intake: never Substance use: never Substance use type: does not use Do You Feel Safe in your Home?: Yes Lack of Transportation: No Lack of Food: Never True Current Housing: I Have Housing Concerned About Future Housing: No Difficulty Paying Gas/Electric Bills: No Difficulty Paying for Meds: No Currently Unemployed: No Education: Master's Degree or Higher Difficulty w/ Childcare or Family Care: No Spiritual care concerns: No Meds Home Medications and Allergies Home Medications ?Medication ?Instructions ?Recorded ?Confirmed ?Type escitalopram oxalate 5 mg tablet 5 mg PO DAILY 01/22/25 01/22/25 History lisinopril 10 mg tablet 10 mg PO DAILY 01/22/25 01/22/25 History quetiapine 25 mg tablet 50 mg PO BID 01/22/25 01/22/25 History thiamine HCl (vitamin B1) 100 mg 100 mg PO DAILY 01/22/25 01/22/25 History capsule trazodone 50 mg tablet 50 mg PO TID 01/22/25 01/22/25 History Allergies Allergy/AdvReac Type Severity Reaction Status Date / Time Penicillins Allergy Severe Anaphylaxis Verified 04/17/25 14:13 acetaminophen Allergy Unknown Verified 04/17/25 14:13 Vital Signs Vital Signs - 24 hr 04/17/25 14:08 04/17/25 19:48 04/17/25 20:00 Temperature 97.7 F Pulse Rate 91 90 Respiratory Rate 16 17 Blood Pressure 132/63 150/82 H Pulse Oximetry 100 100 100 Oxygen Delivery Room Air Exam Const: General: comfortable and no acute distress Other: A&O x1 HENMT: Mouth: Yes dry mucous membranes Eyes: Pupils: Equal, round and reactive pupils present Neck: Neck: supple Resp: Effort & Inspection: normal respiratory effort Auscultation: clear to auscultation bilaterally Cardio: Rate: regular rate Rhythm: regular rhythm GI: Inspection: non-distended GI Palp: Yes Soft to palpation : Other: Slight tenderness to palpation of right lower quadrant, suprapubic area Neuro: Motor exam (neuro): 5/5 motor strength present throughout Extrem: General: no edema H&P: Results Labs Labs: Short CBC 04/17/25 Range/Units 16:38 WBC 7.8 (4.5-10.0) K/mm3 Hgb 11.6 L (12.0-15.0) g/dL Hct 36.2 L (37.0-47.0) % Plt Count 404 H (150-375) k/mm3 BMP 04/17/25 16:35 Sodium 132 L Potassium 4.0 Chloride 102 Carbon Dioxide 16 L BUN 27 H D Creatinine 1.46 H Glucose 84 Calcium 9.5 Liver Function 04/17/25 Range/Units 16:35 Total Bilirubin 0.8 (0.2-1.3) mg/dL AST 27 (14-36) U/L ALT 15 (6-35) U/L Alkaline Phosphatase 134 H (38-126) U/L Albumin 3.7 (3.5-5.1) g/dL Assessment and Plan Assessment and plan (1) Failure to thrive: Status: Chronic (2) Alzheimer's dementia: Code(s): G30.9 - Alzheimer's disease, unspecified; F02.80 - Dementia in other diseases classified elsewhere, unspecified severity, without behavioral disturbance, psychotic disturbance, mood disturbance, and anxiety Status: Chronic (3) Generalized weakness: Code(s): R53.1 - Weakness Status: Chronic (4) Acute kidney injury: Code(s): N17.9 - Acute kidney failure, unspecified Status: Acute Plan 69-year-old female with Alzheimer's dementia, baseline A&O x1-2, frequent UTI, history of failure to thrive presents from [facility] with weakness. His reported she has not been eating or drinking much in the past few days. The patient is an unreliable historian due to her dementia. Brother is at bedside. Blood pressure on arrival 132/63. Afebrile. WBC 7.8, hemoglobin 11.6, sodium 132, anion gap 14, BUN 27, serum creatinine 1.46. Chest x-ray without acute process. 1 L lactated Ringer's was administered. ----- Urinalysis pending. Urine lytes pending. Bladder scan ordered. Renal ultrasound ordered. Ambulate with assistance. PT OT eval. Dietitian consult placed. Dietary supplements started. Continue with lactated Ringer's at 100 cc/hour. Continue to trend renal function panel. Patient is DNR. Reports her daughter is in [place] and he is local support. SCDs. LR infusion. Ambulate with assistance. Fall precautions. Hospitalist [facility] Advance Care Plan I have confirmed that the patient's Advanced Care Plan is present, code status is documented, or surrogate decision maker is listed in patient medical record.: Yes Medication Reconciliation I have utilized all available resources to obtain, update and review the patients current medications (includes all prescriptions, OTC, herbals, cannabis, and nutritional supplements).: Yes
[2025-04-17 22:24] VITALS: BP 134/75; PULSE 94; RESP 17; TEMP 36.7; O2SAT 100
[2025-04-17 22:49] LABS: Acetaminophen < 10 ug/mL (10-30); Salicylate < 1.0 mg/dL (2-20)
[2025-04-17 23:03] VITALS: BMI 21.6
[2025-04-17] MEDS: LACTATED RINGERS 1,000 ML 100 ML IV CONT (23:12)
--- NOTE | 2025-04-17 23:22 | ADMGEN ---
This patient, Krissy Kapoor, was admitted to [facility] Surg Room 306-02. Patient/family oriented to hospital policies and general routines including ID bracelet, bed and alarms, visiting hours, pain management, procedures, bathroom and other care routines, personal items, smoking policy, room service/diet, and visiting hours. Information on how to activate the Rapid Response Team has been discussed. Patient/Family are encouraged to report perceived risks to care and to ask questions if they do not understand what they are told or what they should do.
--- NOTE | 2025-04-18 00:19 | PC.NURSE ---
patient stood bed re-zeroed and patient re-weighed
[2025-04-18 04:00] VITALS: BP 133/78; PULSE 96; RESP 20; TEMP 36.7; O2SAT 98
[2025-04-18 06:22] LABS: Hematocrit 32.0 % (37.0-47.0); Hemoglobin 10.4 g/dL (12.0-15.0); Immature Granulocyte Percent A 0.5 % (0-0.5); Lymphocytes Absolute Auto 0.77 K/mm3 (0.9-3.2); Mean Corpuscular HGB Conc 32.5 g/dl (32-36); Mean Corpuscular Hemoglobin 29.2 pg (26-34); Mean Corpuscular Volume 89.9 fl (80-100); Nucleated Red Blood Cells Absolute Auto 0.000 K/mm3 (0.0-0.012); Nucleated Red Blood Cells Perc 0.0 % (0.0-0.2); Platelet Count Result 347 k/mm3 (150-375); Red Blood Count 3.56 M/mm3 (4.2-5.4); White Blood Count 6.0 K/mm3 (4.5-10.0)
[2025-04-18 06:44] LABS: Anion Gap 7 mmol/L (4-12); Blood Urea Nitrogen 20 mg/dL (7-17); Calcium 8.7 mg/dL (8.4-10.2); Carbon Dioxide 21 mmol/L (22-30); Chloride 104 mmol/L (98-107); Estimated CRCL calculation 31 ml/min; Estimated Glomerular Filt Rate 43; Glucose 90 mg/dL (65-110); Magnesium 1.9 mg/dL (1.6-2.3); Sodium 132 mmol/L (137-145)
[2025-04-18 06:52] LABS: Potassium 3.5 mmol/L (3.4-5.0)
[2025-04-18 08:00] VITALS: O2SAT 97
[2025-04-18] MEDS: ESCITALOPRAM OXALATE 5 MG TABLET PO (09:55)
[2025-04-18] MEDS: THIAMINE HCL 100 MG TABLET PO (09:55)
[2025-04-18] MEDS: LACTATED RINGERS 1,000 ML 100 ML IV CONT ×2 (10:05→23:14)
[2025-04-18 11:52] LABS: Add Urine Microscopic? YES; Appearance Urine Clear (Clear); Glucose Urine UA Negative (Negative); Leukocyte Esterase Ur Trace LEU/UL (Negative); Need Manual Microscopic Reviewed; Nitrate Urine Negative (Negative); Specific Grav Ur 1.009 (1.001-1.035)
--- NOTE | 2025-04-18 12:03 | PM.IMPN ---
Progress Note: A&P Assessment and Plan (1) Failure to thrive: Status: Chronic (2) Alzheimer's dementia: Code(s): G30.9 - Alzheimer's disease, unspecified; F02.80 - Dementia in other diseases classified elsewhere, unspecified severity, without behavioral disturbance, psychotic disturbance, mood disturbance, and anxiety Status: Chronic (3) Generalized weakness: Code(s): R53.1 - Weakness Status: Chronic (4) Acute kidney injury: Code(s): N17.9 - Acute kidney failure, unspecified Status: Acute Plan 69-year-old female with Alzheimer's dementia, baseline A&O x1-2, frequent UTI, history of failure to thrive presents from [facility] with Generalized weakness. His reported she has not been eating or drinking much in the past few days. The patient is an unreliable historian due to her dementia. Blood pressure on arrival 132/63. Afebrile. WBC 7.8, hemoglobin 11.6, sodium 132, anion gap 14, BUN 27, serum creatinine 1.46. Chest x-ray without acute process. 1 L lactated Ringer's was administered. generalized weakness YESICA creatinine 1.46 on admission improving with IV fluid.Renal ultrasound with 1.6 cm left renal cyst otherwise no hydronephrosis Dementia: Baseline alert and oriented times 1-2 Hypertension home medication Anxiety depression Frequent UTIs Failure to thrive DVT prophylaxis Lovenox Code status do not resuscitate Subjective Date/time seen: 04/18/25 12:03 Interval history: No overnight events. Patient confused. Getting IV fluid. Denies any pain. No shortness of breath or chest pain. Review of Systems Review of Systems: All systems reviewed & are unremarkable except as noted in HPI and below (Subjective/HPI) Exam Narrative: APPEARANCE: Well appearing, no pain, no distress, well-nourished. HEAD: normocephalic, atraumatic. EYES: PERRLA/EOMI, conjunctivae clear. NOSE: Normal no drainage NECK: Supple. No adenopathy, no masses. RESPIRATORY: Airway patent, respirations nonlabored. Clear to auscultation bilaterally, no rales, rhonchi, wheezing. CARDIOVASCULAR: Regular rate and rhythm without murmurs rubs or gallops. ABDOMINAL: Soft, nontender, nondistended, normal bowel sounds MUSCULOSKELETAL: Moves all extremities. Strength/ROM intact, No edema, No calf tenderness. NEURO: Alert. Cranial nerves II through XII intact. Grossly intact SKIN: Warm, dry. Normal Color Objective Data Vital Signs Vital Signs: Vital Signs - 24 hr 04/17/25 14:08 04/17/25 19:48 04/17/25 20:00 Temperature 97.7 F Pulse Rate 91 90 Respiratory Rate 16 17 Blood Pressure 132/63 150/82 H Pulse Oximetry 100 100 100 Oxygen Delivery Room Air 04/17/25 21:53 04/17/25 22:24 04/18/25 04:00 Temperature 97.8 F 98.1 F 98.0 F Pulse Rate 89 94 96 Respiratory Rate 18 17 20 Blood Pressure 132/70 134/75 133/78 Pulse Oximetry 100 100 98 Oxygen Delivery Intake/Output Intake/Output: Intake & Output 04/15/25 04/16/25 04/17/25 04/18/25 23:59 23:59 23:59 23:59 Intake Total 1000 880 Output Total 1 Balance 1000 879 Meds/Results Medications: Active Medications Generic Name Dose Route Start Last Admin Trade Name Freq PRN Reason Stop Dose Admin Escitalopram Oxalate 5 mg 04/18/25 09:00 04/18/25 09:55 Escitalopram Oxalate 5 Mg Tablet PO 5 mg DAILY WINSTON Administration Lactated Ringer's 1,000 mls @ 100 mls/hr 04/17/25 21:55 04/18/25 10:05 Lr - Lactated Ringers Iv IV CONT 100 mls/hr .Q10H WINSTON Administration Melatonin 3 mg 04/18/25 21:00 Melatonin 3 Mg Tablet PO HS WINSTON Quetiapine Fumarate 50 mg 04/18/25 09:00 04/18/25 09:55 Quetiapine Fumarate 25 Mg Tablet PO 50 mg BID WINSTON Administration Thiamine HCl 100 mg 04/18/25 09:00 04/18/25 09:55 Thiamine Hcl 100 Mg Tablet PO 100 mg QAM WINSTON Administration Trazodone HCl 50 mg 04/18/25 09:00 04/18/25 09:55 Trazodone Hcl 50 Mg Tablet PO 50 mg TID WINSTON Administration Radiology Results: ITS Impressions Chest X-Ray 04/17/25 15:15 IMPRESSION: No acute cardiopulmonary process. Renal Ultrasound 04/18/25 09:24 IMPRESSION: 1. 1.6 cm left renal cyst. Otherwise normal kidneys without hydronephrosis. Labs Labs: Laboratory Results - last 24 hr 04/17/25 04/17/25 04/17/25 11:18 15:03 16:35 WBC RBC Hgb Hct MCV MCH MCHC RDW Plt Count MPV Immature Gran % (Auto) Neut % (Auto) Lymph % (Auto) [place] % (Auto) Eos % (Auto) Baso % (Auto) Lymph # (Auto) [place] # (Auto) Eos # (Auto) Baso # (Auto) Abs Immat Gran (auto) Absolute Neuts (auto) Absolute Nucleated RBC Nucleated RBC % Sodium 132 L Potassium 4.0 Chloride 102 Carbon Dioxide 16 L Anion Gap 14 H BUN 27 H D Creatinine 1.46 H Estim Creat Clear Calc 30 Estimated GFR 35 L Glucose 84 Lactic Acid Calcium 9.5 Magnesium Total Bilirubin 0.8 AST 27 ALT 15 Alkaline Phosphatase 134 H Total Protein 7.7 Albumin 3.7 Urine Color Yellow Urine Appearance Clear Urine pH 6.5 Ur Specific [place] 1.009 Urine Protein Negative Urine Glucose (UA) Negative Urine Ketones Trace H Ur Blood (Man) Negative Urine Nitrate Negative Urine Bilirubin Negative Urine Urobilinogen 1.0 Add Ur Microanalysis Reviewed Leukocyte Esterase Rfl Trace H Urine RBC 0-2 Urine WBC 0-5 Ur Squamous Epith Cells Occasional Urine Bacteria None seen Urine Casts 3-5 Salicylates Acetaminophen Influenza A (RT-PCR) Negative Influenza B (RT-PCR) Negative RSV (RT-PCR) Negative SARS-CoV-2 RNA (RT-PCR) Negative 04/17/25 04/17/25 04/17/25 16:38 22:17 23:25 WBC 7.8 RBC 4.01 L Hgb 11.6 L Hct 36.2 L MCV 90.3 MCH 28.9 MCHC 32.0 RDW 14.4 Plt Count 404 H MPV 9.0 Immature Gran % (Auto) 0.4 Neut % (Auto) 74.7 H Lymph % (Auto) 14.1 L [place] % (Auto) 9.5 H Eos % (Auto) 0.9 Baso % (Auto) 0.4 Lymph # (Auto) 1.10 [place] # (Auto) 0.7 H Eos # (Auto) 0.1 Baso # (Auto) 0.0 Abs Immat Gran (auto) 0.03 Absolute Neuts (auto) 5.8 Absolute Nucleated RBC 0.000 Nucleated RBC % 0.0 Sodium Potassium Chloride Carbon Dioxide Anion Gap BUN Creatinine Estim Creat Clear Calc Estimated GFR Glucose Lactic Acid 1.3 Calcium Magnesium Total Bilirubin AST ALT Alkaline Phosphatase Total Protein Albumin Urine Color Urine Appearance Urine pH Ur Specific [place] Urine Protein Urine Glucose (UA) Urine Ketones Ur Blood (Man) Urine Nitrate Urine Bilirubin Urine Urobilinogen Add Ur Microanalysis Leukocyte Esterase Rfl Urine RBC Urine WBC Ur Squamous Epith Cells Urine Bacteria Urine Casts Salicylates < 1.0 L Acetaminophen < 10 L Influenza A (RT-PCR) Influenza B (RT-PCR) RSV (RT-PCR) SARS-CoV-2 RNA (RT-PCR) 04/18/25 05:58 WBC 6.0 RBC 3.56 L Hgb 10.4 L Hct 32.0 L MCV 89.9 MCH 29.2 MCHC 32.5 RDW 14.0 Plt Count 347 MPV 9.3 Immature Gran % (Auto) 0.5 Neut % (Auto) 73.2 H Lymph % (Auto) 12.8 L [place] % (Auto) 12.0 H Eos % (Auto) 1.0 Baso % (Auto) 0.5 Lymph # (Auto) 0.77 L [place] # (Auto) 0.7 H Eos # (Auto) 0.1 Baso # (Auto) 0.0 Abs Immat Gran (auto) 0.03 Absolute Neuts (auto) 4.4 Absolute Nucleated RBC 0.000 Nucleated RBC % 0.0 Sodium 132 L Potassium 3.5 Chloride 104 Carbon Dioxide 21 L Anion Gap 7 BUN 20 H Creatinine 1.22 H Estim Creat Clear Calc 31 Estimated GFR 43 L Glucose 90 Lactic Acid Calcium 8.7 Magnesium 1.9 Total Bilirubin AST ALT Alkaline Phosphatase Total Protein Albumin Urine Color Urine Appearance Urine pH Ur Specific [place] Urine Protein Urine Glucose (UA) Urine Ketones Ur Blood (Man) Urine Nitrate Urine Bilirubin Urine Urobilinogen Add Ur Microanalysis Leukocyte Esterase Rfl Urine RBC Urine WBC Ur Squamous Epith Cells Urine Bacteria Urine Casts Salicylates Acetaminophen Influenza A (RT-PCR) Influenza B (RT-PCR) RSV (RT-PCR) SARS-CoV-2 RNA (RT-PCR)
[2025-04-18 12:12] LABS: Urine Eos QC 2nd Tech Confirmed
[2025-04-18] MEDS: MEGESTROL ACETATE (*CHEMO) ORAL SUSP 40 MG/ML SYR 800 MG PO (12:33)
[2025-04-18 12:54] VITALS: BMI 24.3
[2025-04-18 14:00] VITALS: BP 92/69; PULSE 125; RESP 16; TEMP 35.8; O2SAT 97
--- NOTE | 2025-04-18 14:52 | P.CDI_ITS ---
CDI Query Clarification Request BMI: 24.4 Nutritional Diagnostic Statement: Please refer to the comprehensive nutrition assessment for further information. If you agree with diagnosis of Moderate protein calorie malnutrition related to inadequate energy intake as evidenced by a significant weight loss of -17% x 2 months, poor po intake for greater than 1 month, and NFPE findings for moderate subcutaneous fat loss and moderate muscle wasting. Please specify severity if known: * Mild * Moderate * Severe * Other/Unknown
[2025-04-18] MEDS: MELATONIN 3 MG TABLET PO (20:28)
[2025-04-18 20:35] VITALS: BP 104/65; PULSE 99; RESP 18; TEMP 35.9; O2SAT 97
[2025-04-19 05:15] VITALS: BP 126/70; PULSE 90; RESP 16; TEMP 36.6; O2SAT 97
[2025-04-19 06:24] LABS: Hematocrit 32.8 % (37.0-47.0); Hemoglobin 10.5 g/dL (12.0-15.0); Immature Granulocyte Percent A 0.3 % (0-0.5); Lymphocytes Absolute Auto 1.04 K/mm3 (0.9-3.2); Mean Corpuscular HGB Conc 32.0 g/dl (32-36); Mean Corpuscular Hemoglobin 29.3 pg (26-34); Mean Corpuscular Volume 91.6 fl (80-100); Nucleated Red Blood Cells Absolute Auto 0.000 K/mm3 (0.0-0.012); Nucleated Red Blood Cells Perc 0.0 % (0.0-0.2); Platelet Count Result 347 k/mm3 (150-375); Red Blood Count 3.58 M/mm3 (4.2-5.4); White Blood Count 7.8 K/mm3 (4.5-10.0)
[2025-04-19 06:49] LABS: Alanine Aminotransferase 10 U/L (6-35); Albumin Level 3.0 g/dL (3.5-5.1); Alkaline Phosphatase 122 U/L (38-126); Anion Gap 3 mmol/L (4-12); Aspartate Amino Transferase 28 U/L (14-36); Bilirubin,Total 0.6 mg/dL (0.2-1.3); Blood Urea Nitrogen 15 mg/dL (7-17); Calcium 9.0 mg/dL (8.4-10.2); Carbon Dioxide 24 mmol/L (22-30); Chloride 106 mmol/L (98-107); Estimated CRCL calculation 36 ml/min; Estimated Glomerular Filt Rate 53; Glucose 91 mg/dL (65-110); Magnesium 2.1 mg/dL (1.6-2.3); Potassium 3.6 mmol/L (3.4-5.0); Sodium 133 mmol/L (137-145); Total Protein 6.2 g/dL (6.3-8.2)
[2025-04-19 08:00] VITALS: PULSE 90; RESP 16; O2SAT 97
[2025-04-19] MEDS: ESCITALOPRAM OXALATE 5 MG TABLET PO (08:06)
[2025-04-19] MEDS: THIAMINE HCL 100 MG TABLET PO (08:06)
[2025-04-19] MEDS: ENOXAPARIN 40 MG/0.4 ML SYRINGE SUB-Q (08:06)
[2025-04-19] MEDS: MEGESTROL ACETATE (*CHEMO) ORAL SUSP 40 MG/ML SYR 800 MG PO (08:06)
--- NOTE | 2025-04-19 12:03 | P.PNIM_ITS ---
Progress Note: A&P Assessment and Plan (1) Failure to thrive: Status: Chronic (2) Alzheimer's dementia: Code(s): G30.9 - Alzheimer's disease, unspecified; F02.80 - Dementia in other diseases classified elsewhere, unspecified severity, without behavioral disturbance, psychotic disturbance, mood disturbance, and anxiety Status: Chronic (3) Generalized weakness: Code(s): R53.1 - Weakness Status: Chronic (4) Acute kidney injury: Code(s): N17.9 - Acute kidney failure, unspecified Status: Acute Plan 69-year-old female with Alzheimer's dementia, baseline A&O x1-2, frequent UTI, history of failure to thrive presents from [facility] with Generalized weakness. His reported she has not been eating or drinking much in the past few days. The patient is an unreliable historian due to her dementia. Blood pressure on arrival 132/63. Afebrile. WBC 7.8, hemoglobin 11.6, sodium 132, anion gap 14, BUN 27, serum creatinine 1.46. Chest x-ray without acute process. 1 L lactated Ringer's was administered. generalized weakness poor p.o. intake. added on Megace for appetite stimulation YESICA creatinine 1.46 on admission improving with IV fluid.Renal ultrasound with 1.6 cm left renal cyst otherwise no hydronephrosis Dementia: Baseline alert and oriented times 1-2 Hypertension home medication Anxiety depression Frequent UTIs Failure to thrive DVT prophylaxis Lovenox Code status do not resuscitate Subjective Date/time seen: 04/19/25 12:03 Interval history: No overnight events. Patient denies any new complaints. Still has poor appetite and poor p.o. intake Review of Systems Review of Systems: All systems reviewed & are unremarkable except as noted in HPI and below (Subjective/HPI) Exam Narrative: APPEARANCE: Well appearing, no pain, no distress, well-nourished. HEAD: normocephalic, atraumatic. EYES: PERRLA/EOMI, conjunctivae clear. NOSE: Normal no drainage NECK: Supple. No adenopathy, no masses. RESPIRATORY: Airway patent, respirations nonlabored. Clear to auscultation bilaterally, no rales, rhonchi, wheezing. CARDIOVASCULAR: Regular rate and rhythm without murmurs rubs or gallops. ABDOMINAL: Soft, nontender, nondistended, normal bowel sounds MUSCULOSKELETAL: Moves all extremities. Strength/ROM intact, No edema, No calf tenderness. NEURO: Alert. Cranial nerves II through XII intact. Grossly intact SKIN: Warm, dry. Normal Color Objective Data Vital Signs Vital Signs: Vital Signs - 24 hr 04/18/25 14:00 04/18/25 20:35 04/19/25 05:15 Temperature 96.5 F L 96.7 F L 98 F Pulse Rate 125 H 99 90 Respiratory Rate 16 18 16 Blood Pressure 92/69 L 104/65 126/70 Pulse Oximetry 97 97 97 Intake/Output Intake/Output: Intake & Output 04/16/25 04/17/25 04/18/25 04/19/25 23:59 23:59 23:59 23:59 Intake Total 1000 2117 936.7 Output Total 351 450 Balance 1000 1766 486.7 Meds/Results Medications: Active Medications Generic Name Dose Route Start Last Admin Trade Name Freq PRN Reason Stop Dose Admin Enoxaparin Sodium 40 mg 04/19/25 09:00 04/19/25 08:06 Enoxaparin 40 Mg/0.4 Ml Syringe SUB-Q 40 mg DAILY WINSTON Administration Escitalopram Oxalate 5 mg 04/18/25 09:00 04/19/25 08:06 Escitalopram Oxalate 5 Mg Tablet PO 5 mg DAILY WINSTON Administration Lactated Ringer's 1,000 mls @ 60 mls/hr 04/17/25 21:55 04/19/25 08:06 Lr - Lactated Ringers Iv IV CONT 0 mls/hr .[id number] WINSTON Infusion Megestrol Acetate 800 mg 04/18/25 12:10 04/19/25 08:06 Megestrol Acetate (*Chemo) Oral Susp 40 Mg/Ml Syr PO 800 mg QAM WINSTON Administration Melatonin 3 mg 04/18/25 21:00 04/18/25 20:28 Melatonin 3 Mg Tablet PO 3 mg HS WINSTON Administration Quetiapine Fumarate 50 mg 04/18/25 09:00 04/19/25 08:06 Quetiapine Fumarate 25 Mg Tablet PO 50 mg BID WINSTON Administration Thiamine HCl 100 mg 04/18/25 09:00 04/19/25 08:06 Thiamine Hcl 100 Mg Tablet PO 100 mg QAM WINSTON Administration Trazodone HCl 50 mg 04/18/25 09:00 04/19/25 08:06 Trazodone Hcl 50 Mg Tablet PO 50 mg TID WINSTON Administration Radiology Results: ITS Impressions Chest X-Ray 04/17/25 15:15 IMPRESSION: No acute cardiopulmonary process. Renal Ultrasound 04/18/25 09:24 IMPRESSION: 1. 1.6 cm left renal cyst. Otherwise normal kidneys without hydronephrosis. Labs Labs: Laboratory Results - last 24 hr 04/17/25 04/18/25 04/19/25 11:18 18:21 05:45 WBC 7.8 RBC 3.58 L Hgb 10.5 L Hct 32.8 L MCV 91.6 MCH 29.3 MCHC 32.0 RDW 14.6 H Plt Count 347 MPV 9.3 Immature Gran % (Auto) 0.3 Neut % (Auto) 74.3 H Lymph % (Auto) 13.4 L [place] % (Auto) 9.8 H Eos % (Auto) 1.8 Baso % (Auto) 0.4 Lymph # (Auto) 1.04 [place] # (Auto) 0.8 H Eos # (Auto) 0.1 Baso # (Auto) 0.0 Abs Immat Gran (auto) 0.02 Absolute Neuts (auto) 5.8 Absolute Nucleated RBC 0.000 Nucleated RBC % 0.0 Sodium 133 L Potassium 3.6 Chloride 106 Carbon Dioxide 24 Anion Gap 3 L BUN 15 D Creatinine 1.02 H Estim Creat Clear Calc 36 Estimated GFR 53 L Glucose 91 POC Capillary Glucose 107 H Calcium 9.0 Magnesium 2.1 Total Bilirubin 0.6 AST 28 ALT 10 Alkaline Phosphatase 122 Total Protein 6.2 L Albumin 3.0 L Urine Eosinophils Rare Ur Random Sodium 96 Urine Creatinine 48.3
[2025-04-19 14:00] VITALS: BP 140/64; PULSE 111; RESP 17; TEMP 36.1; O2SAT 99
[2025-04-19] MEDS: BISACODYL 10 MG SUPPOSITORY RECTAL (17:23)
[2025-04-19 20:41] VITALS: BP 123/79; PULSE 99; RESP 16; TEMP 37.2; O2SAT 98
[2025-04-19] MEDS: MELATONIN 3 MG TABLET PO (20:50)
[2025-04-19 21:38] LABS: Thyroid Stimulating Hormone 3.160 uIU/mL (0.465-4.680)
[2025-04-20 05:57] VITALS: BP 124/77; PULSE 96; RESP 18; TEMP 36.4; O2SAT 96
[2025-04-20 08:00] VITALS: O2SAT 96
--- NOTE | 2025-04-20 08:21 | PM.IMPN ---
Progress Note: A&P Assessment and Plan (1) Failure to thrive: Status: Chronic (2) Alzheimer's dementia: Code(s): G30.9 - Alzheimer's disease, unspecified; F02.80 - Dementia in other diseases classified elsewhere, unspecified severity, without behavioral disturbance, psychotic disturbance, mood disturbance, and anxiety Status: Chronic (3) Generalized weakness: Code(s): R53.1 - Weakness Status: Chronic (4) Acute kidney injury: Code(s): N17.9 - Acute kidney failure, unspecified Status: Acute Plan 69-year-old female with Alzheimer's dementia, baseline A&O x1-2, frequent UTI, history of failure to thrive [facility] His reported she has not been eating or drinking much in the past few days. The patient is an unreliable historian due to her dementia. Blood pressure on arrival 132/63. Afebrile. WBC 7.8, hemoglobin 11.6, sodium 132, anion gap 14, BUN 27, serum creatinine 1.46. Chest x-ray without acute process. 1 L lactated Ringer's was administered. Generalized weakness poor p.o. intake. added on Megace for appetite stimulation Abnormal weight loss: ct cap reviewed. no acute findings noted. except for fecal impaction. fecal impaction: bisacodyl supp 04/19. had few bm. will get xr abd to further check YESICA creatinine 1.46 on admission improving with IV fluid.Renal ultrasound with 1.6 cm left renal cyst otherwise no hydronephrosis Dementia: Baseline alert and oriented times 1-2 Hypertension home medication Anxiety depression Frequent UTIs Failure to thrive DVT prophylaxis Lovenox Code status do not resuscitate leonel have hopsice informational meeting with the daughter Subjective Date/time seen: 04/20/25 08:21 Interval history: no overnight events. patient had couple of bm yesterday. remains confused Review of Systems Review of Systems: All systems reviewed & are unremarkable except as noted in HPI and below (Subjective/HPI) Exam Narrative: APPEARANCE: frail looking, no distress, well-nourished. HEAD: normocephalic, atraumatic. EYES: PERRLA/EOMI, conjunctivae clear. NOSE: Normal no drainage NECK: Supple. No adenopathy, no masses. RESPIRATORY: Airway patent, respirations nonlabored. Clear to auscultation bilaterally, no rales, rhonchi, wheezing. CARDIOVASCULAR: Regular rate and rhythm without murmurs rubs or gallops. ABDOMINAL: Soft, nontender, nondistended, normal bowel sounds MUSCULOSKELETAL: Moves all extremities. Strength/ROM intact, No edema, No calf tenderness. NEURO: Alert. Cranial nerves II through XII intact. Grossly intact SKIN: Warm, dry. Normal Color Objective Data Vital Signs Vital Signs: Vital Signs - 24 hr 04/19/25 14:00 04/19/25 20:41 04/20/25 05:57 Temperature 97.0 F L 99.0 F 97.5 F L Pulse Rate 111 H 99 96 Respiratory Rate 17 16 18 Blood Pressure 140/64 123/79 124/77 Pulse Oximetry 99 98 96 Intake/Output Intake/Output: Intake & Output 04/17/25 04/18/25 04/19/25 04/20/25 23:59 23:59 23:59 23:59 Intake Total 1000 2117 936.7 Output Total 351 1050 Balance 1000 1766 -113.3 Meds/Results Medications: Active Medications Generic Name Dose Route Start Last Admin Trade Name Freq PRN Reason Stop Dose Admin Enoxaparin Sodium 40 mg 04/19/25 09:00 04/19/25 08:06 Enoxaparin 40 Mg/0.4 Ml Syringe SUB-Q 40 mg DAILY WINSTON Administration Escitalopram Oxalate 5 mg 04/18/25 09:00 04/19/25 08:06 Escitalopram Oxalate 5 Mg Tablet PO 5 mg DAILY WINSTON Administration Megestrol Acetate 800 mg 04/18/25 12:10 04/19/25 08:06 Megestrol Acetate (*Chemo) Oral Susp 40 Mg/Ml Syr PO 800 mg QAM WINSTON Administration Melatonin 3 mg 04/18/25 21:00 04/19/25 20:50 Melatonin 3 Mg Tablet PO 3 mg HS WINSTON Administration Polyethylene Glycol 17 gm 04/20/25 09:00 Polyethylene Glycol 3350 17 Gm Powd.Pack PO QAM WINSTON Quetiapine Fumarate 50 mg 04/18/25 09:00 04/19/25 16:40 Quetiapine Fumarate 25 Mg Tablet PO 50 mg BID WINSTON Administration Thiamine HCl 100 mg 04/18/25 09:00 04/19/25 08:06 Thiamine Hcl 100 Mg Tablet PO 100 mg QAM WINSTON Administration Trazodone HCl 50 mg 04/18/25 09:00 04/19/25 16:41 Trazodone Hcl 50 Mg Tablet PO 50 mg TID WINSTON Administration Radiology Results: ITS Impressions Chest X-Ray 04/17/25 15:15 IMPRESSION: No acute cardiopulmonary process. Renal Ultrasound 04/18/25 09:24 IMPRESSION: 1. 1.6 cm left renal cyst. Otherwise normal kidneys without hydronephrosis. Chest/Abdomen/Pelvis CT 04/19/25 14:03 IMPRESSION: Findings consistent with significant fecal impaction distending the rectum with mural thickening and presacral induration. No morphologically suspicious lymph nodes within the bilateral inguinal regions. Calcification of the gallbladder fundus with a large lamellated stone. Labs Labs: Laboratory Results - last 24 hr 04/19/25 20:41 TSH 3.160
[2025-04-20] MEDS: THIAMINE HCL 100 MG TABLET PO (09:16)
[2025-04-20] MEDS: ENOXAPARIN 40 MG/0.4 ML SYRINGE SUB-Q (09:17)
[2025-04-20] MEDS: ESCITALOPRAM OXALATE 5 MG TABLET PO (09:17)
[2025-04-20] MEDS: MEGESTROL ACETATE (*CHEMO) ORAL SUSP 40 MG/ML SYR 800 MG PO (09:18)
[2025-04-20 14:00] VITALS: BP 113/74; PULSE 98; RESP 20; TEMP 36.7; O2SAT 97
[2025-04-20] MEDS: MELATONIN 3 MG TABLET PO (20:05)
[2025-04-20 20:38] VITALS: BP 101/58; PULSE 89; RESP 16; TEMP 36.7; O2SAT 97
[2025-04-20 21:51] VITALS: PULSE 74; RESP 20; O2SAT 97
[2025-04-21 05:40] VITALS: BP 109/71; PULSE 102; RESP 16; TEMP 36.8; O2SAT 98
[2025-04-21 06:18] LABS: Hematocrit 33.5 % (37.0-47.0); Hemoglobin 10.8 g/dL (12.0-15.0); Immature Granulocyte Percent A 0.5 % (0-0.5); Lymphocytes Absolute Auto 1.45 K/mm3 (0.9-3.2); Mean Corpuscular HGB Conc 32.2 g/dl (32-36); Mean Corpuscular Hemoglobin 29.0 pg (26-34); Mean Corpuscular Volume 90.1 fl (80-100); Nucleated Red Blood Cells Absolute Auto 0.000 K/mm3 (0.0-0.012); Nucleated Red Blood Cells Perc 0.0 % (0.0-0.2); Platelet Count Result 413 k/mm3 (150-375); Red Blood Count 3.72 M/mm3 (4.2-5.4); White Blood Count 9.9 K/mm3 (4.5-10.0)
[2025-04-21 06:44] LABS: Alanine Aminotransferase 10 U/L (6-35); Albumin Level 3.3 g/dL (3.5-5.1); Alkaline Phosphatase 117 U/L (38-126); Anion Gap 6 mmol/L (4-12); Aspartate Amino Transferase 27 U/L (14-36); Bilirubin,Total 0.5 mg/dL (0.2-1.3); Blood Urea Nitrogen 14 mg/dL (7-17); Calcium 9.7 mg/dL (8.4-10.2); Carbon Dioxide 24 mmol/L (22-30); Chloride 104 mmol/L (98-107); Estimated CRCL calculation 40 ml/min; Estimated Glomerular Filt Rate 60; Glucose 102 mg/dL (65-110); Magnesium 2.3 mg/dL (1.6-2.3); Potassium 3.9 mmol/L (3.4-5.0); Sodium 134 mmol/L (137-145); Total Protein 7.1 g/dL (6.3-8.2)
[2025-04-21] MEDS: ENOXAPARIN 40 MG/0.4 ML SYRINGE SUB-Q (09:13)
[2025-04-21] MEDS: MEGESTROL ACETATE (*CHEMO) ORAL SUSP 40 MG/ML SYR 800 MG PO (09:15)
[2025-04-21] MEDS: THIAMINE HCL 100 MG TABLET PO (09:15)
[2025-04-21] MEDS: ESCITALOPRAM OXALATE 5 MG TABLET PO (09:15)
[2025-04-21 14:00] VITALS: BP 97/51; PULSE 98; RESP 18; TEMP 36.4; O2SAT 97
--- NOTE | 2025-04-21 14:41 | PM.IMPN ---
Progress Note: A&P Assessment and Plan (1) Failure to thrive: Status: Chronic (2) Alzheimer's dementia: Code(s): G30.9 - Alzheimer's disease, unspecified; F02.80 - Dementia in other diseases classified elsewhere, unspecified severity, without behavioral disturbance, psychotic disturbance, mood disturbance, and anxiety Status: Chronic (3) Generalized weakness: Code(s): R53.1 - Weakness Status: Chronic (4) Acute kidney injury: Code(s): N17.9 - Acute kidney failure, unspecified Status: Acute Plan 69-year-old female with Alzheimer's dementia, baseline A&O x1-2, frequent UTI, history of failure to thrive presents from [facility] with Generalized weakness. His reported she has not been eating or drinking much in the past few days. The patient is an unreliable historian due to her dementia. Generalized weakness poor p.o. intake. on Megace for appetite stimulation Abnormal weight loss: ct cap reviewed. no acute findings noted. except for fecal impaction. fecal impaction: bisacodyl supp 04/19. had few bm. continue bowel regimen YESICA creatinine 1.46 on admission improving with IV fluid.Renal ultrasound with 1.6 cm left renal cyst otherwise no hydronephrosis Dementia: Baseline alert and oriented times 1-2 Hypertension home medication Anxiety depression Frequent UTIs Failure to thrive/ mod pro dm malnutrition: dietitian onboard mild hyponatremia: continue to monitor DVT prophylaxis Lovenox Code status do not resuscitate Subjective Date/time seen: 04/21/25 14:41 Interval history: pAtient was seen and examined at bedside. she is feeling fine. is oriented x1-2. deneis chest pain, SOb ,abd pain, N/V. no acute event over night. pending her family decision about hospice. Review of Systems Review of Systems: All systems reviewed & are unremarkable except as noted in HPI and below (Subjective/HPI) Exam Narrative: APPEARANCE: frail looking, no distress, well-nourished. HEAD: normocephalic, atraumatic. EYES: PERRLA/EOMI, conjunctivae clear. NOSE: Normal no drainage NECK: Supple. No adenopathy, no masses. RESPIRATORY: Airway patent, respirations nonlabored. Clear to auscultation bilaterally, no rales, rhonchi, wheezing. CARDIOVASCULAR: Regular rate and rhythm without murmurs rubs or gallops. ABDOMINAL: Soft, nontender, nondistended, normal bowel sounds MUSCULOSKELETAL: Moves all extremities. Strength/ROM intact, No edema, No calf tenderness. NEURO: Alert. Cranial nerves II through XII intact. Grossly intact SKIN: Warm, dry. Normal Color Const: General: comfortable and no acute distress Other: A&O x1 HENMT: Mouth: Yes dry mucous membranes Eyes: Pupils: Equal, round and reactive pupils present Neck: Neck: supple Resp: Effort & Inspection: normal respiratory effort Auscultation: clear to auscultation bilaterally Cardio: Rate: regular rate Rhythm: regular rhythm GI: Inspection: non-distended : Other: Slight tenderness to palpation of right lower quadrant, suprapubic area Neuro: Cranial nerves: Yes Equal, round and reactive pupils present Motor exam (neuro): 5/5 motor strength present throughout Extrem: General: no edema Objective Data Vital Signs Vital Signs: Vital Signs - 24 hr 04/20/25 20:00 04/20/25 20:38 04/20/25 21:51 Temperature 98.0 F Pulse Rate 89 74 Respiratory Rate 16 20 Blood Pressure 101/58 L Pulse Oximetry 97 97 Oxygen Delivery Room Air Room Air Fraction of Inspired Oxygen 21 04/21/25 05:40 Temperature 98.2 F Pulse Rate 102 H Respiratory Rate 16 Blood Pressure 109/71 Pulse Oximetry 98 Oxygen Delivery Fraction of Inspired Oxygen Intake/Output Intake/Output: Intake & Output 04/18/25 04/19/25 04/20/25 04/21/25 23:59 23:59 23:59 23:59 Intake Total 2117 936.7 500 0 Output Total 351 1050 300 450 Balance 1766 -113.3 200 -450 Meds/Results Medications: Active Medications Generic Name Dose Route Start Last Admin Trade Name Freq PRN Reason Stop Dose Admin Enoxaparin Sodium 40 mg 04/19/25 09:00 04/21/25 09:13 Enoxaparin 40 Mg/0.4 Ml Syringe SUB-Q 40 mg DAILY W[place]ON Administration Escitalopram Oxalate 5 mg 04/18/25 09:00 04/21/25 09:15 Escitalopram Oxalate 5 Mg Tablet PO 5 mg DAILY WINSTON Administration Megestrol Acetate 800 mg 04/18/25 12:10 04/21/25 09:15 Megestrol Acetate (*Chemo) Oral Susp 40 Mg/Ml Syr PO 800 mg QAM WINSTON Administration Melatonin 3 mg 04/18/25 21:00 04/20/25 20:05 Melatonin 3 Mg Tablet PO 3 mg HS WINSTON Administration Polyethylene Glycol 17 gm 04/20/25 09:00 04/21/25 09:10 Polyethylene Glycol 3350 17 Gm Powd.Pack PO 17 gm QAM WINSTON Administration Quetiapine Fumarate 50 mg 04/18/25 09:00 04/21/25 09:15 Quetiapine Fumarate 25 Mg Tablet PO 50 mg BID WINSTON Administration Thiamine HCl 100 mg 04/18/25 09:00 04/21/25 09:15 Thiamine Hcl 100 Mg Tablet PO 100 mg QAM W[place]ON Administration Trazodone HCl 50 mg 04/18/25 09:00 04/21/25 12:05 Trazodone Hcl 50 Mg Tablet PO 50 mg TID WINSTON Administration Radiology Results: ITS Impressions Chest X-Ray 04/17/25 15:15 IMPRESSION: No acute cardiopulmonary process. Renal Ultrasound 04/18/25 09:24 IMPRESSION: 1. 1.6 cm left renal cyst. Otherwise normal kidneys without hydronephrosis. Chest/Abdomen/Pelvis CT 04/19/25 14:03 IMPRESSION: Findings consistent with significant fecal impaction distending the rectum with mural thickening and presacral induration. No morphologically suspicious lymph nodes within the bilateral inguinal regions. Calcification of the gallbladder fundus with a large lamellated stone. Abdomen X-Ray 04/20/25 11:02 Impression: 1: No acute abdominal abnormality. 2: Partially calcified gallbladder wall. Labs Labs: Laboratory Results - last 24 hr 04/21/25 05:11 WBC 9.9 RBC 3.72 L Hgb 10.8 L Hct 33.5 L MCV 90.1 MCH 29.0 MCHC 32.2 RDW 14.3 Plt Count 413 H MPV 9.4 Immature Gran % (Auto) 0.5 Neut % (Auto) 76.0 H Lymph % (Auto) 14.6 L [place] % (Auto) 7.5 Eos % (Auto) 1.2 Baso % (Auto) 0.2 Lymph # (Auto) 1.45 [place] # (Auto) 0.7 H Eos # (Auto) 0.1 Baso # (Auto) 0.0 Abs Immat Gran (auto) 0.05 H Absolute Neuts (auto) 7.5 H Absolute Nucleated RBC 0.000 Nucleated RBC % 0.0 Sodium 134 L Potassium 3.9 Chloride 104 Carbon Dioxide 24 Anion Gap 6 BUN 14 Creatinine 0.92 Estim Creat Clear Calc 40 Estimated GFR 60 Glucose 102 Calcium 9.7 Magnesium 2.3 Total Bilirubin 0.5 AST 27 ALT 10 Alkaline Phosphatase 117 Total Protein 7.1 Albumin 3.3 L
[2025-04-21] MEDS: MELATONIN 3 MG TABLET PO (20:04)
[2025-04-21 21:37] VITALS: PULSE 71; RESP 20; O2SAT 93
[2025-04-21 22:00] VITALS: BP 99/53; PULSE 96; RESP 12; TEMP 36.9; O2SAT 96
[2025-04-22 06:00] VITALS: BP 119/65; PULSE 86; RESP 16; TEMP 36.1; O2SAT 98
[2025-04-22 06:34] LABS: Hematocrit 32.6 % (37.0-47.0); Hemoglobin 10.3 g/dL (12.0-15.0); Mean Corpuscular HGB Conc 31.6 g/dl (32-36); Mean Corpuscular Hemoglobin 29.3 pg (26-34); Mean Corpuscular Volume 92.9 fl (80-100); Platelet Count Result 417 k/mm3 (150-375); Red Blood Count 3.51 M/mm3 (4.2-5.4); White Blood Count 10.7 K/mm3 (4.5-10.0)
[2025-04-22 07:01] LABS: Anion Gap 7 mmol/L (4-12); Blood Urea Nitrogen 14 mg/dL (7-17); Calcium 9.7 mg/dL (8.4-10.2); Carbon Dioxide 22 mmol/L (22-30); Chloride 108 mmol/L (98-107); Estimated CRCL calculation 40 ml/min; Estimated Glomerular Filt Rate 59; Glucose 104 mg/dL (65-110); Potassium 4.1 mmol/L (3.4-5.0); Sodium 137 mmol/L (137-145)
[2025-04-22] MEDS: ESCITALOPRAM OXALATE 5 MG TABLET PO (09:10)
[2025-04-22] MEDS: THIAMINE HCL 100 MG TABLET PO (09:10)
[2025-04-22] MEDS: ENOXAPARIN 40 MG/0.4 ML SYRINGE SUB-Q (09:13)
[2025-04-22] MEDS: MEGESTROL ACETATE (*CHEMO) ORAL SUSP 40 MG/ML SYR 800 MG PO (09:13)
--- NOTE | 2025-04-22 09:49 | PCNFU ---
Nutrition Follow-Up Complete: Moderate protein calorie malnutrition related to inadequate energy intake as evidenced by a significant weight loss of -17% x 2 months, poor po intake for greater than 1 month, and NFPE findings for moderate subcutaneous fat loss and moderate muscle wasting. PO intake improved - progressing slowly. Continue with same goal Goal: Pt current nutrition is Regular diet, Ensure +HP BID (350 kcal 20 g protein each). Nutrition recommendation: No new recommendations. Continue current nutrition care plan and orders. Agree with orders. Last recorded weight is 62.4 kg. Bowel Motility: +1 BM 8 Labs Reviewed: Hgb 10.3, Hct 32.6, Alb 3.3 Meds Noted: Megace, miralax Skin: No skin issues noted Additional Notes: Intakes improved to 0-50% since last follow up. Baseline dementia. Continue current nutrition care plan and orders. Monitor intake, wt, labs.
--- NOTE | 2025-04-22 11:48 | P.DS_ITS ---
DS: Admitting Diagnosis Discharge Date 04/22/25 Admitting Diagnosis weakness, YESICA, poor intake DS: Discharge Diagnosis Discharge Diagnosis (1) Failure to thrive: Status: Chronic (2) Alzheimer's dementia: Code(s): G30.9 - Alzheimer's disease, unspecified; F02.80 - Dementia in other diseases classified elsewhere, unspecified severity, without behavioral disturbance, psychotic disturbance, mood disturbance, and anxiety Status: Chronic (3) Generalized weakness: Code(s): R53.1 - Weakness Status: Chronic (4) Acute kidney injury: Code(s): N17.9 - Acute kidney failure, unspecified Status: Acute Plan 69-year-old female with Alzheimer's dementia, baseline A&O x1-2, frequent UTI, history of failure to thrive presents from [facility] with Generalized weakness. His reported she has not been eating or drinking much in the past few days. The patient is an unreliable historian due to her dementia. Generalized weakness poor p.o. intake. on Megace for appetite stimulation Abnormal weight loss: ct cap reviewed. no acute findings noted. except for fecal impaction. fecal impaction: bisacodyl supp 04/19. had few bm. continue bowel regimen YESICA creatinine 1.46 on admission improving with IV fluid.Renal ultrasound with 1.6 cm left renal cyst otherwise no hydronephrosis Dementia: Baseline alert and oriented times 1-2 Hypertension home medication Anxiety depression Frequent UTIs Failure to thrive/ mod pro dm malnutrition: dietitian onboard mild hyponatremia: continue to monitor DVT prophylaxis Lovenox Code status do not resuscitate DS: Summary Hospital Course Hospital Course: 69-year-old female with Alzheimer's dementia, baseline A&O x1-2, frequent UTI, history of failure to thrive presents from [facility] with Generalized weakness. His reported she has not been eating or drinking much in the past few days. The patient is an unreliable historian due to her dementia. started on Megace. Her appetite improving. Kidney function improved after IV fluid. Patient and her family decided hospice. Her daughter asked to decrease the dose of trazodone. We changed that to b.i.d. Status at Discharge Overall status at discharge: patient is back to baseline Time Spent with Patient Time attestation: Total time spent providing and/or coordinating discharge services: Time spent: Greater than 30 minutes Exam Narrative: APPEARANCE: frail looking, no distress, well-nourished. HEAD: normocephalic, atraumatic. EYES: PERRLA/EOMI, conjunctivae clear. NOSE: Normal no drainage NECK: Supple. No adenopathy, no masses. RESPIRATORY: Airway patent, respirations nonlabored. Clear to auscultation bilaterally, no rales, rhonchi, wheezing. CARDIOVASCULAR: Regular rate and rhythm without murmurs rubs or gallops. ABDOMINAL: Soft, nontender, nondistended, normal bowel sounds MUSCULOSKELETAL: Moves all extremities. Strength/ROM intact, No edema, No calf tenderness. NEURO: Alert. Cranial nerves II through XII intact. Grossly intact SKIN: Warm, dry. Normal Color Const: General: comfortable and no acute distress Other: A&O x1 HENMT: Mouth: Yes dry mucous membranes Eyes: Pupils: Equal, round and reactive pupils present Neck: Neck: supple Resp: Effort & Inspection: normal respiratory effort Auscultation: clear to auscultation bilaterally Cardio: Rate: regular rate Rhythm: regular rhythm GI: Inspection: non-distended : Other: Slight tenderness to palpation of right lower quadrant, suprapubic area Neuro: Cranial nerves: Yes Equal, round and reactive pupils present Motor exam (neuro): 5/5 motor strength present throughout Extrem: General: no edema DS: Data Data Completed and Pending Labs on day of discharge: Labs from last 24 hours 04/22/25 06:08 WBC 10.7 H RBC 3.51 L Hgb 10.3 L Hct 32.6 L MCV 92.9 MCH 29.3 MCHC 31.6 L RDW 14.5 Plt Count 417 H MPV 9.2 Sodium 137 Potassium 4.1 Chloride 108 H Carbon Dioxide 22 Anion Gap 7 BUN 14 Creatinine 0.93 Estim Creat Clear Calc 40 Estimated GFR 59 Glucose 104 Calcium 9.7 Discharge Plan Discharge Attending physician on discharge: Deisy Sanz Discharging Clinician: Deisy Sanz Anticipated Discharge Date/Time: 04/22/25 11:52 Patient Disposition: Hospice - Medical Facility Activity: as tolerated Diet: as tolerated Discharge Instructions: Follow with hospice care team as needed Patient Language: Serbian Stand Alone Forms: General Discharge Information Follow-up/Referrals: Pendegraft,Mariam, SKIVER HAND [Primary Care Provider] - 1 Week Discharge Medications: New megestrol 400 mg/10 mL (10 mL) Suspension 800 mg PO QAM Qty: 100 0RF Continued quetiapine 25 mg tablet 50 mg PO BID escitalopram oxalate 5 mg tablet 5 mg PO DAILY thiamine HCl (vitamin B1) 100 mg capsule 100 mg PO DAILY melatonin 3 mg capsule 3 mg PO HS loperamide [Anti-Diarrheal (loperamide)] 2 mg capsule 2 mg PO QID PRN (Reason: loose stool) d-mannose 500 mg capsule 1,000 mg PO DAILY menthol-zinc oxide [CalaSoothe] 0.44-20.6 % ointment 1 applic topical BID Changed trazodone 50 mg tablet 50 mg PO BID Qty: 30 0RF Discontinued lisinopril 10 mg tablet 10 mg PO DAILY Date of admission: 04/19/25 15:14 Primary Care Provider: Jenny,Mariam Admitting Provider: Ange Dang Attending physician on admission: Ange Dang Condition: Stable
== END 2025-04-22 18:00 | disposition hospice, inpatient (51) | DRG 683 ==
LOC: ANHED 22:25 → ANH3MEDSUR 22:44
PROVIDERS: Internal Medicine; Physician Assistant; Admitting Provider General Practice; Emergency Provider Emergency Medicine; PCP Nurse Practitioner Family; Visit Provider Internal Medicine
DX: N17.9 Acute kidney failure, unspecified (principal); E44.0 Moderate protein-calorie malnutrition; E87.1 Hypo-osmolality and hyponatremia; R62.7 Adult failure to thrive; R53.1 Weakness; G30.9 Alzheimer's disease, unspecified; F02.80 Dementia in other diseases classified elsewhere, unspecified severity, without behavioral disturbance, psychotic disturbance, mood disturbance, and anxiety; Z68.24 Body mass index [BMI] 24.0-24.9, adult; Z20.822 Contact with and (suspected) exposure to COVID-19; I10 Essential (primary) hypertension; F41.8 Other specified anxiety disorders; K56.41 Fecal impaction; Z66 Do not resuscitate
CPT/HCPCS: 36415; 71045; 71260; 74018; 74177; 76775; 80048; 80053; 80143; 80179; 81001; 82570; 82948; 83605; 83735; 84300; 84443; 85025; 85027; 85999; 87637; 96360; 96372; 97110; 97161; 97166; 97530; 97535; 99285; A9270; G0378; J1650; J7120; Q9967